=== PATIENT | female | born 1975 | race Caucasian/White ===

== ENCOUNTER 2018-12-08 21:50 | Emergency (ER) | payer OTHER ==
--- OUTSIDE RECORDS SUMMARY | 2018-12-08 21:52 | XMS REPORT ---
:1975 Author Organization eClinicalWorks Care Team Providers Name Role Phone DavisKehinde feng Provider Role Unavailable Allergies, Adverse Reactions, Alerts Substance Reaction Event Type Latex Info Not Available Drug Allergy codeine Info Not Available Drug Allergy Penicllin Info Not Available Drug Allergy Sulfa Info Not Available Drug Allergy Problems Problem Type Condition Code Onset Dates Condition Status Assessment Left foot pain M79.672 Active Assessment Plantar fasciitis of left foot M72.2 Active Assessment Peroneal tendinitis of left lower M76.72 Active extremity Medications Medication Code Code Instructions Start End Status Dosage System Date Date Losartan ND 69827104182 50 MG Orally Active 1 tablet Potassium Once a day Levothyroxine ND 01813584126 100 MCG Orally Active 1 tablet Sodium Once a day on an empty stomach in the morning MetFORMIN HCl ER ND 33664125643 500 MG Orally Active 1 tablet Once a day with evening meal Results No Known Results Summary Purpose eClinicalWorks Submission
[2018-12-08] MEDS ORDERED: MORPHINE 4 MG/ML SYR ONE (22:46)
[2018-12-08] MEDS ORDERED: NA CHLORIDE 0.9% 1,000 ML ONE (22:47)
[2018-12-08] MEDS ORDERED: ONDANSETRON 4 MG/2 ML VIAL ONE (22:49)
[2018-12-08 22:52] LABS: Absolute Lymphocytes (CBC) 2.9 K/uL (0.7-4.9); Absolute Neutrophil 7.6 K/uL (1.8-8.0); Basophils % 0.3 % (0-1.3); Eosinophils % 2.2 % (0-4.4); Lymphocytes % 24.6 % (15.3-44.8); MPV 10.1 fL (7.6-11.3); Monocytes % 8.5 % (3.3-12.3); RBC Red Blood Cell Count 4.38 M/uL (3.86-4.86)
[2018-12-08 23:03] LABS: Albumin 3.6 g/dL (3.4-5.0); Bilirubin Direct 0.2 mg/dL (0-0.2); Bilirubin Total 1.1 mg/dL (0.2-1.0); Protein, Total 7.1 g/dL (6.4-8.2)
--- NOTE | 2018-12-09 01:27 | ER ---
Nurse's Notes [facility] Name: Xenia Pittman Age: 43 yrs Sex: Female : 1975 Arrival Date: 12/08/2018 Time: 21:50 Bed 4 Private MD: Amanda Montilla C Diagnosis: Abdominal pain. Mild enteritis Presentation: 12/08 22:08 Presenting complaint: Patient states: she has been having abdominal pain all night with bb vomiting and diarrhea today the pain is in the epigastric area, does not radiate and is intermittent in intensity she also feels bloated. Transition of care: patient was not received from another setting of care. Onset of symptoms was December 07, 2018. Risk Assessment: Do you want to hurt yourself or someone else? Patient reports no desire to harm self or others. Initial Sepsis Screen: Does the patient meet any 2 criteria? No. Patient's initial sepsis screen is negative. Does the patient have a suspected source of infection? No. Patient's initial sepsis screen is negative. Care prior to arrival: None. 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 - Social history:: Smoking status: Patient/guardian denies using tobacco, Patient/guardian denies using alcohol, street drugs. - Ebola Screening: : No symptoms or risks identified at this time. Screenin:15 Abuse screen: Denies threats or abuse. Nutritional screening: No deficits noted. jd3 Tuberculosis screening: No symptoms or risk factors identified. Fall Risk Ambulatory Aid- None/Bed Rest/Nurse Assist (0 pts). Gait- Normal/Bed Rest/Wheelchair (0 pts) Mental Status- Oriented to own ability (0 pts). Total Blum Fall Scale indicates No Risk (0-24 pts). Assessment: 22:09 General: Appears in no apparent distress. uncomfortable, Behavior is calm, cooperative, jd3 appropriate for age. Pain: Complains of pain in epigastric area Pain does not radiate. Quality of pain is described as sharp. Neuro: Level of Consciousness is awake, alert, obeys commands, Oriented to person, place, time, situation, Appropriate for age. Cardiovascular: Capillary refill < 3 seconds Patient's skin is warm and dry. Respiratory: Airway is patent Respiratory effort is even, unlabored, Respiratory pattern is regular, symmetrical. GI: Abdomen is round Bowel sounds present X 4 quads. Abd is soft and non tender X 4 quads. Reports upper abdominal pain, diarrhea, epigastric pain, nausea, vomiting. : No signs and/or symptoms were reported regarding the genitourinary system. EENT: No signs and/or symptoms were reported regarding the EENT system. Derm: Skin is intact, Skin is dry, Skin is normal, Skin temperature is warm. Musculoskeletal: Circulation, motion, and sensation intact. Range of motion: intact in all extremities. 22:46 Reassessment: Patient appears in no apparent distress at this time. Patient and/or jd3 family updated on plan of care and expected duration. Pain level reassessed. Patient is alert, oriented x 3, equal unlabored respirations, skin warm/dry/pink. 23:49 Reassessment: Patient appears in no apparent distress at this time. Patient and/or jd3 family updated on plan of care and expected duration. Pain level reassessed. Patient is alert, oriented x 3, equal unlabored respirations, skin warm/dry/pink. Patient states feeling better. 12/09 01:00 Reassessment: Patient appears in no apparent distress at this time. Patient and/or jd3 family updated on plan of care and expected duration. Pain level reassessed. Patient is alert, oriented x 3, equal unlabored respirations, skin warm/dry/pink. Patient denies pain at this time. 01:41 Reassessment: Patient appears in no apparent distress at this time. Patient and/or jd3 family updated on plan of care and expected duration. Pain level reassessed. Patient is alert, oriented x 3, equal unlabored respirations, skin warm/dry/pink. Vital Signs: 12/08 22:10 BP 141 / 89; Pulse 92; Resp 18 S; Temp 97.9(O); Pulse Ox 100% on R/A; Weight 111.13 kg bb (R); Height 5 ft. 5 in. (165.10 cm) (R); Pain 5/10; 22:45 BP 124 / 79; Pulse 95; Resp 16 S; Pulse Ox 100% on R/A; jd3 23:49 BP 112 / 71; Pulse 77; Resp 16 S; Pulse Ox 100% on R/A; Pain 0/10; jd3 12/09 01:03 BP 119 / 74; Pulse 79; Resp 17 S; Pulse Ox 98% on R/A; jd3 12/08 22:10 Body Mass Index 40.77 (111.13 kg, 165.10 cm) bb ED Course: 12/08 21:50 Patient arrived in ED. am2 21:51 Amanda Montilla MD is Private Physician. am2 22:03 Cheko Mccabe MD is Attending Physician. pkl 22:09 Pop Garcia, ESTRADA is Primary Nurse. jd3 22:09 Triage completed. bb 22:10 Arm band placed on Patient placed in an exam room, on a stretcher, on pulse oximetry. bb Family accompanied patient. 22:16 Patient has correct armband on for positive identification. Placed in gown. Bed in low jd3 position. Call light in reach. Side rails up X 1. Adult w/ patient. 22:41 Initial lab(s) drawn, by me, sent to lab. Inserted saline lock: 20 gauge in right ak1 antecubital area, using aseptic technique. Blood collected. 23:04 CT notified pt finished oral contrast. ak1 12/09 00:59 CT Abd/Pelvis - W/Contrast In Process Unspecified. EDMS 01:26 Amanda Montilla MD is Referral Physician. pkl 01:40 No provider procedures requiring assistance completed. IV discontinued, intact, jd3 bleeding controlled, No redness/swelling at site. Pressure dressing applied. Administered Medications: 12/08 22:44 Drug: NS 0.9% 1000 ml Route: IV; Rate: 1000 ml; Site: right antecubital; jd3 12/09 01:39 Follow up: Response: No adverse reaction; IV Status: Completed infusion jd3 12/08 22:45 Drug: morphine 4 mg Route: IVP; Site: right antecubital; jd3 12/09 01:39 Follow up: Response: No adverse reaction jd3 12/08 22:45 Drug: Zofran 4 mg Route: IVP; Site: right antecubital; jd3 12/09 01:39 Follow up: Response: No adverse reaction jd3 01:33 Drug: Zithromax 500 mg Route: PO; jd3 01:39 Follow up: Response: Medication administered at discharge. jd3 01:33 Drug: LoMOTIL 2 tabs Route: PO; jd3 01:40 Follow up: Response: Medication administered at discharge. jd3 Outcome: 01:27 Discharge ordered by . pkl 01:40 Discharged to home ambulatory, with family. jd3 01:40 Condition: stable 01:40 Discharge instructions given to patient, family, Instructed on discharge instructions, follow up and referral plans. medication usage, Demonstrated understanding of instructions, follow-up care, medications, Prescriptions given X 3. 01:41 Patient left the ED. jd3 Signatures: Dispatcher [employer] EDMS Cheko Mccabe MD MD pkl Ballard, Brenda RN RN Laura Rodgers RN RN Virginia Greenfield Jonathon, RN RN jd3
--- NOTE | 2018-12-09 01:27 | EDPHYS ---
Physician Documentation [facility] Name: Xenia Pittman Age: 43 yrs Sex: Female : 1975 Arrival Date: 12/08/2018 Time: 21:50 Bed 4 Private MD: Amanda Montilla C ED Physician Cheko Mccabe HPI: 12/08 22:26 This 43 yrs old Female presents to ER via Ambulatory with complaints of pkl Abdominal Pain, Nausea/Vomiting/Diarrhea. 22:26 The patient presents with abdominal pain in the upper abdomen. Onset: The pkl symptoms/episode began/occurred yesterday. The symptoms do not radiate. Associated signs and symptoms: Pertinent positives: nausea, vomiting, and diarrhea. 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 - Social history:: Smoking status: Patient/guardian denies using tobacco, Patient/guardian denies using alcohol, street drugs. - Ebola Screening: : No symptoms or risks identified at this time. ROS: 22:26 Eyes: Negative for injury, pain, redness, and discharge, ENT: Negative for injury, pkl pain, and discharge, Neck: Negative for injury, pain, and swelling, Cardiovascular: Negative for chest pain, palpitations, and edema, Respiratory: Negative for shortness of breath, cough, wheezing, and pleuritic chest pain. 22:26 Abdomen/GI: Positive for abdominal pain, nausea, vomiting, and diarrhea, of the right upper quadrant and left upper quadrant. 22:26 Back: Negative for acute changes. 22:26 : Negative for urinary symptoms. 22:26 MS/extremity: Negative for acute changes. 22:26 Skin: Negative for rash. 22:26 Neuro: Negative for altered mental status. Exam: 22:26 Head/Face: Normocephalic, atraumatic. Eyes: Pupils equal round and reactive to light, pkl extra-ocular motions intact. Lids and lashes normal. Conjunctiva and sclera are non-icteric and not injected. Cornea within normal limits. Periorbital areas with no swelling, redness, or edema. ENT: Nares patent. No nasal discharge, no septal abnormalities noted. Tympanic membranes are normal and external auditory canals are clear. Oropharynx with no redness, swelling, or masses, exudates, or evidence of obstruction, uvula midline. Mucous membranes moist. Neck: Trachea midline, no thyromegaly or masses palpated, and no cervical lymphadenopathy. Supple, full range of motion without nuchal rigidity, or vertebral point tenderness. No Meningismus. Chest/axilla: Normal chest wall appearance and motion. Nontender with no deformity. No lesions are appreciated. Cardiovascular: Regular rate and rhythm with a normal S1 and S2. No gallops, murmurs, or rubs. Normal PMI, no JVD. No pulse deficits. Respiratory: Lungs have equal breath sounds bilaterally, clear to auscultation and percussion. No rales, rhonchi or wheezes noted. No increased work of breathing, no retractions or nasal flaring. 22:26 Abdomen/GI: Bowel sounds: normal, Palpation: soft, mild abdominal tenderness, in the right upper quadrant and left upper quadrant. 22:26 Back: Exam negative for acute changes. 22:26 : Exam negative for acute changes. 22:26 Musculoskeletal/extremity: Exam is negative for acute changes. 22:26 Skin: Exam negative for rash. 22:26 Neuro: Orientation: is normal, Mentation: is normal, Cranial nerves: grossly normal, Motor: is normal. Vital Signs: 22:10 BP 141 / 89; Pulse 92; Resp 18 S; Temp 97.9(O); Pulse Ox 100% on R/A; Weight 111.13 kg bb (R); Height 5 ft. 5 in. (165.10 cm) (R); Pain 5/10; 22:45 BP 124 / 79; Pulse 95; Resp 16 S; Pulse Ox 100% on R/A; jd3 23:49 BP 112 / 71; Pulse 77; Resp 16 S; Pulse Ox 100% on R/A; Pain 0/10; jd3 12/09 01:03 BP 119 / 74; Pulse 79; Resp 17 S; Pulse Ox 98% on R/A; jd3 12/08 22:10 Body Mass Index 40.77 (111.13 kg, 165.10 cm) bb MDM: 12/08 22:03 Patient medically screened. pkl 12/09 01:25 Data reviewed: vital signs, nurses notes, lab test result(s), radiologic studies, CT pkl scan. 12/08 22:22 Order name: Basic Metabolic Panel; Complete Time: 23:19 pkl 12/08 22:22 Order name: CBC with Diff; Complete Time: 23:19 pkl 12/08 22:22 Order name: Creatinine for Radiology; Complete Time: 00:40 pkl 12/08 22:22 Order name: Hepatic Function; Complete Time: 23:19 pkl 12/08 22:22 Order name: Lipase; Complete Time: 23:19 pkl 12/08 22:23 Order name: CT Abd/Pelvis - W/Contrast pkl 12/08 22:22 Order name: IV Saline Lock; Complete Time: 22:45 pkl 12/08 22:22 Order name: Labs collected and sent; Complete Time: 22:45 pkl Administered Medications: 12/08 22:44 Drug: NS 0.9% 1000 ml Route: IV; Rate: 1000 ml; Site: right antecubital; jd3 12/09 01:39 Follow up: Response: No adverse reaction; IV Status: Completed infusion jd3 12/08 22:45 Drug: morphine 4 mg Route: IVP; Site: right antecubital; jd3 12/09 01:39 Follow up: Response: No adverse reaction jd3 12/08 22:45 Drug: Zofran 4 mg Route: IVP; Site: right antecubital; jd3 12/09 01:39 Follow up: Response: No adverse reaction jd3 01:33 Drug: Zithromax 500 mg Route: PO; jd3 01:39 Follow up: Response: Medication administered at discharge. jd3 01:33 Drug: LoMOTIL 2 tabs Route: PO; jd3 01:40 Follow up: Response: Medication administered at discharge. jd3 Disposition: 12/09/18 01:27 Discharged to Home. Impression: Abdominal pain. Mild enteritis. - Condition is Stable. - Prescriptions for Zofran 4 mg Oral Tablet - take 1 tablet by ORAL route every 12 hours As needed; 6 tablet. Zithromax Z- Jules 250 mg Oral Tablet - take 1 tablet by ORAL route as directed for 5 days Day 1 - take two (2) tablets one time. Day 2, 3, 4 , 5 take one (1) tablet once daily.; 6 tablet. Lomotil 2.5- 0.025 mg Oral Tablet - take 2 tablet by ORAL route every 8-12 hours As needed; 10 tablet. - Medication Reconciliation Form, Thank You Letter, Antibiotic Education, Prescription Opioid Use form. - Follow up: Amanda Montilla MD; When: 2 - 3 days; Reason: Re-evaluation by your physician. - Problem is new. - Symptoms have improved. Signatures: Dispatcher [employer] EDCheko Drake MD MD pkl Chika Thrasher RN RN bb Pop Garcia RN RN jd3 Corrections: (The following items were deleted from the chart) 01:41 01:27 12/09/2018 01:27 Discharged to Home. Impression: Abdominal pain. Mild enteritis. jd3 Condition is Stable. Forms are Medication Reconciliation Form, Thank You Letter, Antibiotic Education, Prescription Opioid Use. Follow up: Amanda Montilla; When: 2 - 3 days; Reason: Re-evaluation by your physician. Problem is new. Symptoms have improved. pkl
[2018-12-09] MEDS ORDERED: AZITHROMYCIN 250 MG TAB ONE (01:41)
[2018-12-09] MEDS ORDERED: DIPHENOX/ATROP SULF 1 TAB PO ONE (01:41)
[2018-12-09 01:59] VITALS: TEMP 97.9
[2018-12-09 02:03] VITALS: BP 119/74; O2SAT 98
--- NOTE | 2018-12-09 12:31 | RAD REPORT ---
EXAM DESCRIPTION: CT - Abdomen Pelvis W Contrast - 12/09/2018 12:59 am CLINICAL HISTORY: The patient is 43 years old and is Female; ABD PAIN TECHNIQUE: Axial computed tomography images of the abdomen and pelvis with intravenous contrast. S agittal and coronal reformatted images were created and reviewed. This CT exam was performed using one or more of the following dose reduction techniques: automated exposure control, adjustment of t he mA and/or kV according to patient size, and/or use of iterative reconstruction technique. COMPARISON: No relevant prior studies available. FINDINGS: LUNG BASES: Minimal dependent densities in the lung bases are present. ABDOMEN: LIVER: The liver is mildly fatty and enlarged. GALLBLADDER AND BILE DUCTS: Surgical clips are present in the right upper quadrant, consistent w ith previous cholecystectomy. PANCREAS: No ductal dilation. No mass. SPLEEN: Unremarkable. ADRENALS: Unremarkable. No mass. KIDNEYS AND URETERS: Unremarkable. No solid mass. No hydronephrosis. STOMACH AND BOWEL: The stomach is distended with oral contrast. Oral contrast is present through out the majority of the small bowel. A few distal small bowel loops demonstrate mild mucosal thickeni ng with associated air-fluid levels. Stool is noted within the colon. There is no bowel obstruction. PELVIS: APPENDIX: The appendix is normal in caliber without surrounding inflammation. BLADDER: Unremarkable. No mass. REPRODUCTIVE: An IUD is in place. A small 2.2 cm left ovarian cyst is present. No follow-up imag ing is recommended. The uterus and right ovary are unremarkable. ABDOMEN and PELVIS: INTRAPERITONEAL SPACE: Small amount of free fluid is present within the pelvis which is likely p hysiologic. No free air. BONES/JOINTS: No acute fracture. SOFT TISSUES: The soft tissues are normal. VASCULATURE: Unremarkable. No abdominal aortic aneurysm. LYMPH NODES: Unremarkable. No enlarged lymph nodes. IMPRESSION: Findings suggestive of a mild nonspecific enteritis involving multiple mid to distal sma ll bowel loops. Electronically signed by: Xni Main MD 12/09/2018 1:07 AM CDT Due to temporary technical issues with the PACS/Fluency reporting system, reports are being signed by the in house radiologist as a courtesy to ensure prompt reporting. The interpreting radiologist is f ully responsible for the content of the report.
== END 2018-12-09 01:41 | disposition home or self-care (01) ==
LOC: ER 21:50
DX: K52.9 Noninfective gastroenteritis and colitis, unspecified (principal); J45.909 Unspecified asthma, uncomplicated; E11.9 Type 2 diabetes mellitus without complications; I10 Essential (primary) hypertension; E03.9 Hypothyroidism, unspecified; Z88.1 Allergy status to other antibiotic agents; Z88.5 Allergy status to narcotic agent; Z88.0 Allergy status to penicillin; Z88.2 Allergy status to sulfonamides
CPT/HCPCS: 36415; 74177; 80048; 80076; 83690; 85025; 96361; 96374; 96375; 99284; J2405; J7030; Q9967

== ENCOUNTER 2019-04-05 07:56 | Emergency (ER) | payer OTHER ==
--- OUTSIDE RECORDS SUMMARY | 2019-04-05 07:58 | XMS REPORT ---
[...] Status Dosage System Date Date Losartan ND 50454173403 50 MG Orally Active 1 tablet Potassium Once a day Levothyroxine ND 64825460644 100 MCG Orally Active 1 tablet Sodium Once a day on an empty stomach in the morning MetFORMIN HCl ER ND 42874625568 500 MG Orally Active 1 tablet Once a day with evening meal Results No Known Results Summary Purpose eClinicalWorks Submission
[2019-04-05] MEDS ORDERED: NA CHLORIDE 0.9% 1,000 ML ONE (08:42)
[2019-04-05] MEDS ORDERED: ONDANSETRON 4 MG/2 ML VIAL ONE (08:42)
[2019-04-05] MEDS ORDERED: MORPHINE 2 MG/ML SYR ONE (08:44)
[2019-04-05 09:56] LABS: Albumin 3.9 g/dL (3.4-5.0); Bilirubin Direct 0.1 mg/dL (0-0.2); Bilirubin Total 0.5 mg/dL (0.2-1.0); Potassium 3.9 mmol/L (3.5-5.1); Protein, Total 7.8 g/dL (6.4-8.2)
[2019-04-05 10:00] LABS: Absolute Lymphocytes (CBC) 2.6 K/uL (0.7-4.9); Basophils % 0.2 % (0-1.3); Hematocrit 41.4 % (36.0-45.0); Lymphocytes % 20.3 % (15.3-44.8); MPV 10.7 fL (7.6-11.3); RBC Red Blood Cell Count 4.29 M/uL (3.86-4.86)
[2019-04-05 10:13] LABS: Urine Blood NEGATIVE (NEG); Urine Glucose TRACE (NEG); Urine Protein NEGATIVE (NEG); Urine Specific Gravity 1.025 (1.005-1.030); Urine pH 5.5 (5.0-7.0)
[2019-04-05 10:21] LABS: Urine Bacteria <20 /HPF (<20); Urine Culture Reflex Order NOT NEEDED; Urine Mucus 1+ /HPF (NONE SEEN); Urine RBC <5 /HPF (NONE SEEN)
--- NOTE | 2019-04-05 11:03 | RAD REPORT ---
EXAM DESCRIPTION: CT - Abdomen Pelvis W Contrast - 04/05/2019 10:34 am CLINICAL HISTORY: Abdominal pain with vomiting COMPARISON: December 2018 TECHNIQUE: Computed axial tomography of the abdomen pelvis was obtained. 100 cc Isovue-300 was admin istered intravenously. Oral contrast was not requested which limits evaluation of bowel. All CT scans are performed using dose optimization technique as appropriate and may include automated exposure control or mA/KV adjustment according to patient size. FINDINGS: The liver, spleen, pancreas, adrenal and right kidney appear unremarkable. 1 millimeter no nobstructing left renal calculus. There is no evidence of diverticulitis. Normal appendix An IUD is present within the uterus. Fluid is present within nondilated bowel IMPRESSION: Fluid is present within nondilated bowel which may indicate an enteritis .
--- NOTE | 2019-04-05 11:26 | ER ---
Nurse's Notes [facility] Name: Xenia Pittman Age: 43 yrs Sex: Female : 1975 Arrival Date: 04/05/2019 Time: 07:58 Bed 15 Private MD: Diagnosis: Unspecified abdominal pain Presentation: 04/05 08:00 Presenting complaint: Patient states: upper abd pain that began "a few days ago, aa5 started getting worse last night but today is even worse". Pt also reports nausea/vomiting, denies diarrhea. 08:00 Transition of care: patient was not received from another setting of care. Onset of aa5 symptoms was March 2019. Risk Assessment: Do you want to hurt yourself or someone else? Patient reports no desire to harm self or others. Initial Sepsis Screen: Does the patient meet any 2 criteria? No. Patient's initial sepsis screen is negative. Does the patient have a suspected source of infection? No. Patient's initial sepsis screen is negative. Care prior to arrival: None. 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 - Social history:: Smoking status: Patient/guardian denies using tobacco. - Ebola Screening: : No symptoms or risks identified at this time. Screenin:10 Abuse screen: Denies threats or abuse. Nutritional screening: No deficits noted. rb1 Tuberculosis screening: No symptoms or risk factors identified. Fall Risk None identified. Assessment: 08:10 General: Appears uncomfortable, Behavior is crying, Denies fever. Pain: Complains of rb1 pain in epigastric area, right upper quadrant and left upper quadrant Pain does not radiate. Pain currently is 10 out of 10 on a pain scale. Pain began this morning. Neuro: Level of Consciousness is awake, alert, obeys commands, Oriented to person, place, time, situation. Cardiovascular: Capillary refill < 3 seconds is brisk in bilateral fingers. Respiratory: Airway is patent Respiratory effort is even, unlabored, Respiratory pattern is regular, symmetrical. GI: Bowel sounds present X 4 quads. Abd is soft Reports nausea, Last bowel movement was this morning, stool was normal. Pt. denies bloody stools. : No signs and/or symptoms were reported regarding the genitourinary system. Derm: Skin is pink, warm \\T\\ dry. 09:10 Reassessment: Patient appears in no apparent distress at this time. Patient and/or rb1 family updated on plan of care and expected duration. Pain level reassessed. Patient is alert, oriented x 3, equal unlabored respirations, skin warm/dry/pink. Pain 10. Pt. is crying. Family at bedside. 10:10 Reassessment: Patient appears in no apparent distress at this time. Patient and/or rb1 family updated on plan of care and expected duration. Pain level reassessed. Patient is alert, oriented x 3, equal unlabored respirations, skin warm/dry/pink. Patient denies pain at this time. Patient states feeling better. Patient states symptoms have improved. 10:28 Reassessment: Pt. went to CT. rb1 11:09 Reassessment: Patient appears in no apparent distress at this time. Patient and/or rb1 family updated on plan of care and expected duration. Pain level reassessed. Patient is alert, oriented x 3, equal unlabored respirations, skin warm/dry/pink. Pt. reports that the pain is starting to come back. Provider notified. Vital Signs: 08:01 BP 161 / 82; Pulse 85; Resp 18 S; Temp 98.3(O); Pulse Ox 98% on R/A; Weight 107.5 kg aa5 (R); Height 5 ft. 5 in. (165.10 cm) (R); Pain 9/10; 09:00 BP 158 / 89; Pulse 92; Resp 20; Temp 98.0(TE); Pulse Ox 100% on R/A; Pain 10; rb1 10:00 BP 113 / 59; Pulse 70; Resp 16; Temp 98.1(O); Pulse Ox 99% on R/A; Pain 0/10; rb1 11:00 BP 110 / 58; Pulse 69; Resp 16; Temp 98.6(O); Pulse Ox 98% on R/A; Pain 2/10; rb1 08:01 Body Mass Index 39.44 (107.50 kg, 165.10 cm) aa5 09:00 Pt. is crying rb1 ED Course: 07:58 Patient arrived in ED. as 08:04 Serge Mccall MD is Attending Physician. andrez 08:05 Arm band placed on Patient placed in an exam room, on a stretcher. aa5 08:07 Triage completed. aa5 08:10 Patient has correct armband on for positive identification. Bed in low position. Call rb1 light in reach. Side rails up X 1. Pulse ox on. NIBP on. Warm blanket given. 08:15 Serge Ruiz PA is PHCP. cp 08:22 Melva Lam, RN is Primary Nurse. rb1 08:27 Radiology exam delayed due to lab results not completed at this time. (BUN/Creatinine). mw3 08:38 Radiology exam delayed due to test not completed at this time. mw3 08:45 Inserted saline lock: 22 gauge in right antecubital area, using aseptic technique. rb1 ,using aseptic technique. IV inserted by Milvia Michaels and her instructor. Blood collected. 08:58 Radiology exam delayed due to lab results not completed at this time. (BUN/Creatinine) mw3 test not completed at this time. 09:44 Radiology exam delayed due to lab results not completed at this time. (BUN/Creatinine). mw3 10:34 CT completed. Patient tolerated procedure well. Patient moved back from CT. mw3 10:36 CT Abd/Pelvis - IV Contrast Only In Process Unspecified. EDMS 11:24 Ramy Martinez MD is Referral Physician. cp 11:46 No provider procedures requiring assistance completed. IV discontinued, intact, rb1 bleeding controlled, No redness/swelling at site. Pressure dressing applied. Administered Medications: 09:10 Drug: Zofran 4 mg Route: IVP; Site: right antecubital; rb1 09:25 Follow up: Response: No adverse reaction; Nausea is decreased rb1 09:10 Drug: morphine 4 mg Route: IVP; Site: right antecubital; rb1 09:25 Follow up: Response: No adverse reaction; Pain is decreased; pain 04/19 rb1 09:10 Drug: NS 0.9% 1000 ml Route: IV; Rate: 1 bolus; Site: right antecubital; rb1 10:28 Follow up: IV Status: Completed infusion rb1 11:27 Drug: Bentyl 20 mg Route: PO; rb1 11:46 Follow up: Response: No adverse reaction rb1 Intake: Outcome: 11:25 Discharge ordered by . cp 11:46 Patient left the ED. rb1 11:46 Discharged to home ambulatory, with family. rb1 11:46 Condition: stable 11:46 Discharge instructions given to patient, Instructed on discharge instructions, follow up and referral plans. medication usage, Demonstrated understanding of instructions, follow-up care, medications, Prescriptions given X 3. Signatures: Dispatcher [employer] EDAZ Serge Mccall MD MD cha Martinez, Amelia as Calderon, Audri, ESTRADA RN aa5 Serge Ruiz PA PA Melva Sanz RN RN rb1 Fany Buck mw3
--- NOTE | 2019-04-05 11:26 | EDPHYS ---
Physician Documentation [facility] Name: Xenia Pittman Age: 43 yrs Sex: Female : 1975 Arrival Date: 04/05/2019 Time: 07:58 Bed 15 Private MD: NATHEN Physician Serge Mccall HPI: 04/05 08:19 This 43 yrs old Female presents to ER via Ambulatory with complaints of cp Abdominal Pain. 08:20 The patient presents with abdominal pain in the upper abdomen, mid abdomen. Onset: The cp symptoms/episode began/occurred several days ago, improved, returned last night and today worse. 08:20 The symptoms do not radiate. Associated signs and symptoms: Pertinent positives: cp nausea, Pertinent negatives: blood in stools, chest pain, constipation, diarrhea, dysuria, fever, palpitations, vomiting. The symptoms are described as constant. Modifying factors: the symptoms are aggravated by movement, pressure. The patient has experienced similar episodes in the past, several times. 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 - Social history:: Smoking status: Patient/guardian denies using tobacco. - Ebola Screening: : No symptoms or risks identified at this time. ROS: 08:25 Constitutional: Negative for body aches, chills, fever, poor PO intake. cp 08:25 Eyes: Negative for injury, pain, redness, and discharge. cp 08:25 ENT: Negative for drainage from ear(s), ear pain, sore throat, difficulty swallowing, difficulty handling secretions. 08:25 Cardiovascular: Negative for chest pain, edema, palpitations. 08:25 Respiratory: Negative for cough, shortness of breath, wheezing. 08:25 Abdomen/GI: Positive for abdominal pain, nausea, Negative for vomiting, diarrhea, constipation, anorexia, black/tarry stool, rectal bleeding. 08:25 Back: Negative for radiated pain. 08:25 : Negative for urinary symptoms. 08:25 Skin: Negative for cellulitis, rash. 08:25 All other systems are negative. Exam: 08:35 Constitutional: The patient appears in no acute distress, alert, awake, cp non-diaphoretic, non-toxic, well developed, well nourished, uncomfortable. 08:35 Head/Face: Normocephalic, atraumatic. cp 08:35 Eyes: Periorbital structures: appear normal, Conjunctiva: normal, no exudate, no injection, Sclera: no appreciated abnormality, Lids and lashes: appear normal, bilaterally. 08:35 ENT: External ear(s): are unremarkable, Nose: is normal, Mouth: Lips: moist, Oral mucosa: pink and intact, moist, Posterior pharynx: is normal, airway is patent, no erythema, no exudate. 08:35 Chest/axilla: Inspection: normal, Palpation: is normal, no crepitus, no tenderness. 08:35 Cardiovascular: Rate: normal, Rhythm: regular. 08:35 Respiratory: the patient does not display signs of respiratory distress, Respirations: normal, no use of accessory muscles, no retractions, no splinting, no tachypnea, labored breathing, is not present, Breath sounds: are clear throughout, no decreased breath sounds, no stridor, no wheezing. 08:35 Abdomen/GI: Inspection: abdomen appears normal, Bowel sounds: active, all quadrants, Palpation: soft, in all quadrants, moderate abdominal tenderness, in the umbilical area, right upper quadrant and left upper quadrant, rebound tenderness, is not appreciated, voluntary guarding, is elicited in the umbilical area, right upper quadrant and left upper quadrant, involuntary guarding, is not appreciated. 08:35 Back: pain, is absent, ROM is normal. 08:35 Skin: no rash present. Vital Signs: 08:01 BP 161 / 82; Pulse 85; Resp 18 S; Temp 98.3(O); Pulse Ox 98% on R/A; Weight 107.5 kg aa5 (R); Height 5 ft. 5 in. (165.10 cm) (R); Pain 9/10; 09:00 BP 158 / 89; Pulse 92; Resp 20; Temp 98.0(TE); Pulse Ox 100% on R/A; Pain 10/10; rb1 10:00 BP 113 / 59; Pulse 70; Resp 16; Temp 98.1(O); Pulse Ox 99% on R/A; Pain 0/10; rb1 11:00 BP 110 / 58; Pulse 69; Resp 16; Temp 98.6(O); Pulse Ox 98% on R/A; Pain 2/10; rb1 08:01 Body Mass Index 39.44 (107.50 kg, 165.10 cm) aa5 09:00 Pt. is crying rb1 MDM: 08:08 Patient medically screened. andrez 08:35 Differential diagnosis: appendicitis, bowel obstruction, gastritis, non-specific abd cp pain, pancreatitis, Peptic Ulcer Disease, Perf. Duodenal Ulcer, Perf. Gastric Ulcer, Pyelonephritis, Ureterolithiasis, urinary tract infection. 11:25 Data reviewed: vital signs, nurses notes, lab test result(s), radiologic studies, CT cp scan. 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 Response to treatment: the patient's symptoms have markedly improved after treatment, and as a result, I will discharge patient. Special discussion: Based on the patient's Hx, exam, and Dx evaluation, there is no indication for emergent surgery or inpatient Tx. It is understood by the patient/guardian that if the Sx's persist or worsen they need to return immediately for re-evaluation. ED course: VSS. Pain improved with meds. Will discharge to home for continued monitoring. 04/05 08:22 Order name: Basic Metabolic Panel; Complete Time: 09:58 cp 04/05 09:58 Interpretation: Normal except: CL 109; GLUC 175; GFR 74. cp 04/05 08:22 Order name: CBC with Diff; Complete Time: 10:25 cp 04/05 10:25 Interpretation: Normal except: WBC 12.7; NEUT A 9.1. cp 04/05 08:22 Order name: Creatinine for Radiology; Complete Time: 09:58 cp 04/05 08:22 Order name: Hepatic Function; Complete Time: 09:58 cp 04/05 09:58 Interpretation: Normal except: GLOB 3.9; A/G 1.0. cp 04/05 08:22 Order name: Lipase; Complete Time: 09:58 cp 04/05 08:22 Order name: Urine Microscopic Only; Complete Time: 10:25 cp 04/05 08:22 Order name: IV Saline Lock; Complete Time: 09:24 cp 04/05 08:22 Order name: CT Abd/Pelvis - IV Contrast Only; Complete Time: 11:10 cp 04/05 10:04 Order name: Urine Dipstick--Ancillary (enter results); Complete Time: 10:25 eb 04/05 10:04 Order name: Urine --Ancillary (enter results); Complete Time: 10:25 eb 04/05 08:22 Order name: Labs collected and sent; Complete Time: 09:24 cp 04/05 08:22 Order name: Urine Dipstick-Ancillary (obtain specimen); Complete Time: 10:00 cp 04/05 08:22 Order name: Urine Test (obtain specimen); Complete Time: 10:00 cp 04/05 11:18 Order name: PO challenge; Complete Time: 11:28 cp Administered Medications: 09:10 Drug: Zofran 4 mg Route: IVP; Site: right antecubital; rb1 09:25 Follow up: Response: No adverse reaction; Nausea is decreased rb1 09:10 Drug: morphine 4 mg Route: IVP; Site: right antecubital; rb1 09:25 Follow up: Response: No adverse reaction; Pain is decreased; pain 04/19 rb1 09:10 Drug: NS 0.9% 1000 ml Route: IV; Rate: 1 bolus; Site: right antecubital; rb1 10:28 Follow up: IV Status: Completed infusion rb1 11:27 Drug: Bentyl 20 mg Route: PO; rb1 11:46 Follow up: Response: No adverse reaction rb1 Disposition: 04/06 11:11 Co-signature as Attending Physician, Serge CHACON I agree with the assessment and andrez plan of care. Disposition: 04/05/19 11:25 Discharged to Home. Impression: Unspecified abdominal pain. - Condition is Stable. - Discharge Instructions: Abdominal Pain, Adult. - Prescriptions for Bentyl 20 mg Oral Tablet - take 2 tablets by ORAL route every 6 hours As needed; 30 tablet. Zofran 4 mg Oral Tablet - take 1 tablet by ORAL route every 12 hours As needed; 20 tablet. Metronidazole 500 mg Oral Tablet - take 1 tablet by ORAL route every 8 hours; 30 tablet. - Medication Reconciliation Form, Thank You Letter, Antibiotic Education, Prescription Opioid Use form. - Follow up: Ramy Martinez MD; When: 2 - 3 days; Reason: Recheck today's complaints. - Problem is new. - Symptoms have improved. Signatures: Dispatcher [employer] EDMS Serge Mccall MD MD cha Calderon, Audri, RN RN aa5 Serge Ruiz PA PA cp Barber, Rebecca, RN RN rb1 Corrections: (The following items were deleted from the chart) 04/05 10:25 10:25 Normal except: WBC 12.7. cp cp 11:46 11:25 04/05/2019 11:25 Discharged to Home. Impression: Unspecified abdominal pain. rb1 Condition is Stable. Forms are Medication Reconciliation Form, Thank You Letter, Antibiotic Education, Prescription Opioid Use. Follow up: Ramy Martinez; When: 2 - 3 days; Reason: Recheck today's complaints. Problem is new. Symptoms have improved. cp
[2019-04-05] MEDS ORDERED: DICYCLOMINE HCL 10 MG CAP ONE (11:41)
[2019-04-05 12:05] VITALS: BP 110/58; TEMP 98.6; O2SAT 98
== END 2019-04-05 11:46 | disposition home or self-care (01) ==
LOC: ER 07:56
DX: R10.9 Unspecified abdominal pain (principal); I10 Essential (primary) hypertension; E11.9 Type 2 diabetes mellitus without complications; E03.9 Hypothyroidism, unspecified; Z88.0 Allergy status to penicillin; Z88.1 Allergy status to other antibiotic agents; Z88.2 Allergy status to sulfonamides; Z88.5 Allergy status to narcotic agent
CPT/HCPCS: 36415; 74177; 80048; 80076; 81003; 81015; 81025; 83690; 85025; 96361; 96374; 96375; 99284; J2270; J2405; J7030; Q9967

== ENCOUNTER 2019-09-20 19:42 | Emergency (ER) | payer OTHER ==
--- OUTSIDE RECORDS SUMMARY | 2019-09-20 19:44 | XMS REPORT ---
[...] Status Dosage System Date Date Losartan ND 19359948505 50 MG Orally Active 1 tablet Potassium Once a day Levothyroxine ND 55490274809 100 MCG Orally Active 1 tablet Sodium Once a day on an empty stomach in the morning MetFORMIN HCl ER ND 57709942990 500 MG Orally Active 1 tablet Once a day with evening meal Results No Known Results Summary Purpose eClinicalWorks Submission
[2019-09-20] MEDS ORDERED: MAGNE/ALUM HYDROXD 30 ML UCUP ONE (20:47)
[2019-09-20] MEDS ORDERED: ONDANSETRON 4 MG/2 ML VIAL ONE (20:48)
[2019-09-20] MEDS ORDERED: LIDOCAINE VISCOUS 2% SOLN 15 ML UDC ONE (20:48)
[2019-09-20] MEDS ORDERED: NA CHLORIDE 0.9% 1,000 ML ONE (20:48)
[2019-09-20 21:09] LABS: Absolute Lymphocytes (CBC) 2.3 K/uL (0.7-4.9); Basophils % 0.4 % (0-1.3); Hematocrit 44.1 % (36.0-45.0); Lymphocytes % 19.1 % (15.3-44.8); RBC Red Blood Cell Count 4.59 M/uL (3.86-4.86)
[2019-09-20 21:30] LABS: Albumin 3.8 g/dL (3.4-5.0); Bilirubin Direct 0.3 mg/dL (0-0.2); Bilirubin Total 1.1 mg/dL (0.2-1.0); Potassium 3.7 mmol/L (3.5-5.1); Protein, Total 7.1 g/dL (6.4-8.2)
[2019-09-20] MEDS ORDERED: MORPHINE 4 MG/ML SYR ONE (21:40)
--- NOTE | 2019-09-20 23:08 | ER ---
Nurse's Notes [facility] Name: Xenia Pittman Age: 44 yrs Sex: Female : 1975 Arrival Date: 09/20/2019 Time: 19:45 Bed 30 Private MD: Diagnosis: Unspecified abdominal pain;Vomiting;Diarrhea, unspecified Presentation: 09/20 19:55 Presenting complaint: Patient states: "Im having another H.Pylori flare up. I finished aj1 by antibiotics on the but now the pain is back. I called my doctor and they called me in an antibiotic and some nausea medicine, but the pain is worse now. I'm having diarrhea and vomiting." Patient reports epigastric pain. Transition of care: patient was not received from another setting of care. Onset of symptoms was September 20, 2019. Risk Assessment: Do you want to hurt yourself or someone else? Patient reports no desire to harm self or others. Initial Sepsis Screen: Does the patient meet any 2 criteria? HR > 90 bpm. No. Patient's initial sepsis screen is negative. Does the patient have a suspected source of infection? Yes: Acute abdominal pain. Care prior to arrival: None. 19:55 Method Of Arrival: Ambulatory aj1 19:55 Acuity: GEOVANNY 3 aj1 Triage Assessment: 19:59 General: Appears in no apparent distress. comfortable, Behavior is calm, cooperative, aj1 appropriate for age. Pain: Complains of pain in epigastric area Pain currently is 8 out of 10 on a pain scale. Neuro: Level of Consciousness is awake, alert, obeys commands. Cardiovascular: Patient's skin is warm and dry. Respiratory: Airway is patent Respiratory effort is even, unlabored, Respiratory pattern is regular, symmetrical. GI: Reports upper abdominal pain, diarrhea, nausea, vomiting. 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 - Social history:: Smoking status: Patient/guardian denies using tobacco. - Ebola Screening: : Patient denies travel to an Ebola-affected area in the 21 days before illness onset. Screenin:22 Abuse screen: Denies threats or abuse. Nutritional screening: No deficits noted. ra1 Tuberculosis screening: No symptoms or risk factors identified. Fall Risk None identified. Assessment: 21:22 Reassessment:. General: Appears in no apparent distress. comfortable, well groomed, ra1 well developed, well nourished, Behavior is calm, cooperative, appropriate for age, Smells of Reports pt report pain to right eye, verbalized onset of pain 2 days ago after sharpening an axe Denies. Pain: Complains of pain in right eye Pain radiates to scalp verbalized radiates to right side of head Pain Quality of pain is described as burning, Pain began 2-3 days ago. Is continuous, Alleviated by Aggravated by increased discomfort reported with bright lights Noted to be without observed behaviors Also complains of no other associated symptoms. Current management - is no interventions. Neuro: Reports blurred vision right eye Denies Seizure activity. Cardiovascular: Reports None. Respiratory: Breath sounds are clear bilaterally. GI: Bowel sounds present X 4 quads. Abd is soft and non tender X 4 quads. : No signs and/or symptoms were reported regarding the genitourinary system. EENT: Reports blurred vision right eye. Derm: No signs and/or symptoms reported regarding the dermatologic system. Musculoskeletal: No signs and/or symptoms reported regarding the musculoskeletal system. 21:55 Reassessment: Patient appears in no apparent distress at this time. Patient and/or ra1 family updated on plan of care and expected duration. Pain level reassessed. Patient is alert, oriented x 3, equal unlabored respirations, skin warm/dry/pink. Patient states feeling better. Patient states symptoms have improved. General: Appears in no apparent distress. 22:39 Reassessment: Patient appears in no apparent distress at this time. Patient and/or ra1 family updated on plan of care and expected duration. Pain level reassessed. Patient is alert, oriented x 3, equal unlabored respirations, skin warm/dry/pink. Patient states feeling better. Patient states symptoms have improved. 23:24 Reassessment: Patient appears in no apparent distress at this time. Patient and/or ra1 family updated on plan of care and expected duration. Pain level reassessed. Patient is alert, oriented x 3, equal unlabored respirations, skin warm/dry/pink. Patient states feeling better. Patient states symptoms have improved. verbalized no pain at this time. General: Appears in no apparent distress. comfortable, Behavior is calm, cooperative, appropriate for age, Reports Denies. Respiratory: No deficits noted. Vital Signs: 19:59 BP 129 / 87; Pulse 92; Resp 18; Temp 98.2; Pulse Ox 99% on R/A; Weight 99.34 kg (R); aj1 Height 5 ft. 5 in. (165.10 cm) (R); Pain 8/10; 22:20 BP 134 / 77; Pulse 84; Resp 16; Temp 98.5; Pulse Ox 96% on R/A; Pain 0/10; ra1 19:59 Body Mass Index 36.44 (99.34 kg, 165.10 cm) aj1 ED Course: 19:45 Patient arrived in ED. jg7 19:56 Triage completed. aj1 19:59 Arm band placed on Patient placed in waiting room. aj1 20:08 Josep Ag NP is PHCP. pm1 20:08 Serge Mccall MD is Attending Physician. pm1 20:19 Quirino Williamson, ESTRADA is Primary Nurse. ra1 21:13 Basic Metabolic Panel Sent. ra1 21:14 Creatinine for Radiology Sent. ra1 21:14 Hepatic Function Sent. ra1 21:14 Lipase Sent. ra1 21:22 No apparent distress. ra1 21:22 Bed in low position. Call light in reach. ra1 21:22 No provider procedures requiring assistance completed. ra1 21:32 Inserted saline lock: 20 gauge in right antecubital area, using aseptic technique. ra1 Accessed 23:08 Mariana Muir MD is Referral Physician. pm1 23:24 IV discontinued, intact, bleeding controlled, No redness/swelling at site. Pressure ra1 dressing applied. Administered Medications: 20:55 Drug: GI Cocktail without - (Maalox Suspension 30 ml, Lidocaine Liquid 2 % 15 ra1 ml) Route: PO; 23:49 Follow up: Response: No adverse reaction; Pain is unchanged, physician notified ra1 20:55 Drug: Zofran 4 mg Route: IVP; Site: right antecubital; ra1 23:50 Follow up: Response: No adverse reaction; Nausea is decreased ra1 21:00 Drug: NS 0.9% 1000 ml Route: IV; Rate: 1000 ml; Site: right antecubital; ra1 23:50 Follow up: Response: No adverse reaction; Rate change ml/hr; IV Status: Completed ra1 infusion; IV Intake: 1000ml 21:38 Drug: morphine 4 mg Route: IVP; Site: right antecubital; ra1 23:51 Follow up: Response: No adverse reaction; Pain is decreased ra1 Intake: 23:50 IV: 1000ml; Total: 1000ml. ra1 Outcome: 23:08 Discharge ordered by MD. pm1 23:24 Discharged to home ambulatory, with family. ra1 23:24 Condition: improved 23:24 Discharge instructions given to patient, family, Instructed on discharge instructions, follow up and referral plans. medication usage, Demonstrated understanding of instructions, follow-up care, medications, Prescriptions given X 2, Following a medical screening exam, the patient was provided information regarding alternative care sites and resources available per registration personnel. 23:52 Patient left the ED. ra1 Signatures: Alice Stephenson RN RN aj1 Josep Ag NP MANAGER INSPECTION pm1 Quirino Williamson RN RN ra1 Jana Anderson [id number] Corrections: (The following items were deleted from the chart) 23:43 21:55 Respiratory: ra1 ra1
--- NOTE | 2019-09-20 23:09 | EDPHYS ---
Physician Documentation [facility] Name: Xenia Pittman Age: 44 yrs Sex: Female : 1975 Arrival Date: 09/20/2019 Time: 19:45 Bed 30 Private MD: NATHEN Physician Serge Mccall HPI: 09/20 20:32 This 44 yrs old Female presents to ER via Ambulatory with complaints of pm1 Abdominal Pain. 20:32 The patient presents with abdominal pain in the epigastric area. pm1 20:32 Onset: The symptoms/episode began/occurred today. The symptoms do not radiate. pm1 Associated signs and symptoms: Pertinent positives: nausea, vomiting, and diarrhea, Pertinent negatives: chest pain, constipation, shortness of breath. The symptoms are described as burning, constant. Modifying factors: The symptoms are alleviated by nothing, the symptoms are aggravated by food. Severity of pain: in the emergency department the pain is actually worse. The patient has experienced similar episodes in the past, several times. The patient has been recently seen by a physician: completed H Pylori treatment recently, 09/04. Symptoms feel the same as a flare up of her H. pylori in the past. Called Dr. Muir today and was called Kaylene. Patient has appointment with him on Sunday. 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 - Social history:: Smoking status: Patient/guardian denies using tobacco. - Ebola Screening: : Patient denies travel to an Ebola-affected area in the 21 days before illness onset. ROS: 20:32 Constitutional: Negative for fever, chills, and weight loss, Neck: Negative for injury, pm1 pain, and swelling, Cardiovascular: Negative for chest pain, palpitations, and edema, Respiratory: Negative for shortness of breath, cough, wheezing, and pleuritic chest pain. 20:32 Back: Negative for injury and pain, MS/Extremity: Negative for injury and deformity, Skin: Negative for injury, rash, and discoloration, Neuro: Negative for headache, weakness, numbness, tingling, and seizure. 20:32 Abdomen/GI: Positive for abdominal pain, nausea, vomiting, and diarrhea, Negative for constipation. Exam: 20:32 Constitutional: This is a well developed, well nourished patient who is awake, alert, pm1 and in no acute distress. Head/Face: Normocephalic, atraumatic. Neck: Trachea midline, no thyromegaly or masses palpated, and no cervical lymphadenopathy. Supple, full range of motion without nuchal rigidity, or vertebral point tenderness. No Meningismus. Chest/axilla: Normal chest wall appearance and motion. Nontender with no deformity. No lesions are appreciated. Cardiovascular: Regular rate and rhythm with a normal S1 and S2. No gallops, murmurs, or rubs. Normal PMI, no JVD. No pulse deficits. Respiratory: Lungs have equal breath sounds bilaterally, clear to auscultation and percussion. No rales, rhonchi or wheezes noted. No increased work of breathing, no retractions or nasal flaring. 20:32 Back: No spinal tenderness. No costovertebral tenderness. Full range of motion. Skin: Warm, dry with normal turgor. Normal color with no rashes, no lesions, and no evidence of cellulitis. MS/ Extremity: Pulses equal, no cyanosis. Neurovascular intact. Full, normal range of motion. 20:32 Abdomen/GI: Inspection: abdomen appears normal, Bowel sounds: normal, Palpation: soft, in all quadrants, mild abdominal tenderness, in the epigastric area, mass, is not appreciated, rebound tenderness, is not appreciated. 20:32 Neuro: Orientation: is normal, Motor: is normal, moves all fours, Sensation: is normal, no obvious gross deficits. Vital Signs: 19:59 BP 129 / 87; Pulse 92; Resp 18; Temp 98.2; Pulse Ox 99% on R/A; Weight 99.34 kg (R); aj1 Height 5 ft. 5 in. (165.10 cm) (R); Pain 8/10; 22:20 BP 134 / 77; Pulse 84; Resp 16; Temp 98.5; Pulse Ox 96% on R/A; Pain 0/10; ra1 19:59 Body Mass Index 36.44 (99.34 kg, 165.10 cm) aj1 MDM: 20:08 Patient medically screened. andrez 20:32 Refusal of service: The patient/guardian displays adequate decision making capability pm1 and despite a detailed discussion of alternatives, benefits, risks, and consequences refuses: CT Scan. 21:24 Data reviewed: vital signs. Data interpreted: Pulse oximetry: on room air is 99 %. pm1 Interpretation: normal. 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 23:07 Medication response: morphine relieved the patient's pain. Symptoms have resolved, pm1 patient with 0/10 pain level with morphine. 23:07 ED course: Has appointment with Dr. Muir on Sunday. pm1 09/20 20:30 Order name: Basic Metabolic Panel; Complete Time: 21:33 pm09/20 20:30 Order name: CBC with Diff; Complete Time: 21:24 pm09/20 20:30 Order name: Creatinine for Radiology; Complete Time: 21:33 pm09/20 20:30 Order name: Hepatic Function; Complete Time: 21:33 pm09/20 20:30 Order name: Lipase; Complete Time: 21:33 pm09/20 20:31 Order name: IV Saline Lock; Complete Time: 21:14 pm09/20 20:31 Order name: Labs collected and sent; Complete Time: 21:14 pm1 Administered Medications: 20:55 Drug: GI Cocktail without - (Maalox Suspension 30 ml, Lidocaine Liquid 2 % 15 ra1 ml) Route: PO; 23:49 Follow up: Response: No adverse reaction; Pain is unchanged, physician notified ra1 20:55 Drug: Zofran 4 mg Route: IVP; Site: right antecubital; ra1 23:50 Follow up: Response: No adverse reaction; Nausea is decreased ra 21:00 Drug: NS 0.9% 1000 ml Route: IV; Rate: 1000 ml; Site: right antecubital; [facility] 23:50 Follow up: Response: No adverse reaction; Rate change ml/hr; IV Status: Completed ra1 infusion; IV Intake: 1000ml 21:38 Drug: morphine 4 mg Route: IVP; Site: right antecubital; [facility] 23:51 Follow up: Response: No adverse reaction; Pain is decreased ra Disposition: 09/20/19 23:08 Discharged to Home. Impression: Unspecified abdominal pain, Vomiting, Diarrhea, unspecified. - Condition is Stable. - Discharge Instructions: Abdominal Pain, Adult, Diarrhea, Adult, Nausea and Vomiting, Adult. - Prescriptions for Zofran 4 mg Oral Tablet - take 1 tablet by ORAL route every 12 hours As needed; 20 tablet. Tramadol 50 mg Oral Tablet - take 1 tablet by ORAL route every 8 hours As needed as needed; 12 tablet. - Medication Reconciliation Form, Thank You Letter, Antibiotic Education, Prescription Opioid Use form. - Follow up: Emergency Department; When: As needed; Reason: Worsening of condition. Follow up: Mariana Muir MD; When: 2 - 3 days; Reason: Recheck today's complaints, Continuance of care, Re-evaluation by your physician. - Problem is new. - Symptoms have improved. Addendum: 09/22/2019 08:13 Co-signature as Attending Physician, Serge Mccall MD I agree with the assessment and c waters plan of care. Signatures: Dispatcher [employer] EDAlice Carrion RN RN aj1 Serge Mccall MD MD cha Marinas, Patrick, NP THREADING MACHINE OPERATOR pm1 Quirino Williamson, RN RN ra1 Corrections: (The following items were deleted from the chart) 09/20 23:52 23:08 09/20/2019 23:08 Discharged to Home. Impression: Unspecified abdominal pain; ra1 Vomiting; Diarrhea, unspecified. Condition is Stable. Forms are Medication Reconciliation Form, Thank You Letter, Antibiotic Education, Prescription Opioid Use. Follow up: Emergency Department; When: As needed; Reason: Worsening of condition. Follow up: Mariana Muir; When: 2 - 3 days; Reason: Recheck today's complaints, Continuance of care, Re-evaluation by your physician. Problem is new. Symptoms have improved. pm1
[2019-09-21 02:11] VITALS: TEMP 98.5
[2019-09-21 02:19] VITALS: O2SAT 100
[2019-09-21 02:21] VITALS: BP 132/77
== END 2019-09-20 23:52 | disposition home or self-care (01) ==
LOC: ER 19:42
DX: R19.7 Diarrhea, unspecified (principal); R11.10 Vomiting, unspecified; I10 Essential (primary) hypertension; E03.9 Hypothyroidism, unspecified; E11.9 Type 2 diabetes mellitus without complications; Z88.0 Allergy status to penicillin; Z88.1 Allergy status to other antibiotic agents; Z88.2 Allergy status to sulfonamides; Z88.5 Allergy status to narcotic agent
CPT/HCPCS: 96361; 85025; 80048; 36415; 80076; 83690; 96375; 96374; 99284; J7030; J2405

== ENCOUNTER 2022-11-16 20:02 | Inpatient (IN) | payer OTHER ==
--- OUTSIDE RECORDS SUMMARY | 2022-11-16 20:06 | XMS REPORT | Continuity of Care Document ---
:1975 Author Organization [facility] Address [address] [facility] [address] [place] [address] Care Team Providers Name Role Phone Pcp, Patient Does Not Have A Primary Care Physician [phone] Skip Pardo Attending Clinician Unavailable Doctor Unassigned, [place] Attending Clinician Unavailable JEFFREY ENAMORADO Attending Clinician Unavailable Therapy, [facility] Cov[facility] Infusion Attending Clinician Unavailable Jeffrey Enamorado MD Attending Clinician Skip Pardo Admitting Clinician Unavailable Payers Payer Name Policy Type Policy Number Effective Date Expiration Date Shawn fiore [facility]/T 53 [id number] Common Sp wu - [facility] Problems Condition Condition Condition Status Onset Resolution Last Treating Co mments Source Name Details Category Date Date Treatment Clinician Date [id number] Primary Problem Comm on osteoarthr Spirit itis of - CHI right knee [facility] [id number] Pain in Problem Common pelvis Spirit [facility] [id number] Trochanter Problem C ommon ic Spirit bursitis - CHI of right [facility] [id number] Tendinitis Problem Co mmon of right [facility] hip flexor [facility] Allergies, Adverse Reactions, Alerts Allergy Allergy Status Severity Reaction(s) Onset Inactive Treating Comm ents Source Name Type Date Date Clinician Penicill Propensi Active Swelling Univ ers ins ty to 8-28 ity of adverse 00:00: [place] reaction 00 Medical s Branch Sulfa Propensi Active Itching 2020-0 Univers (Sulfona ty to 8-28 ity of mide adverse 00:00: [place] Antibiot reaction 00 Medica l ics) s Branch CODEINE DRUG Active ITCHING 2020-0 Univers INGREDI 8-28 ity of 00:00: [place] 00 Medical Branch LEVOFLOX DRUG Active ITCHING 2020-0 Univers ACIN INGREDI 8-28 ity of 00:00: 00 Medical Branch PENICILL Drug Active ITCHING 2020-0 Univers INS Class 8-28 ity of 00:00: [place] 00 Medical Branch SULFA Drug Active ITCHING 2020-0 Univers (SULFONA Class 8-28 ity of MIDE 00:00: [place] ANTIBIOT 00 Medical ICS) Branch Codeine Propensi Active Itching 2020-0 Univer s ty to 8-28 ity of adverse 00:00: [place] reaction 00 Medical s Branch Levoflox Propensi Active Itching 2020-0 Unive rs acin ty to 8-28 ity of adverse 00:00: [place] reaction 00 Medical s Branch NO KNOWN Drug Active Univers ALLERGIE Class ity of S [facility] 0 Drug Active Unknown Common allergy [facility] codeine codeine Active Unknown Common [facility] Social History Social Habit Start Date Stop Date Quantity Comments Source History of Tobacco Use Co mmon [facility] Sex Assigned At Com mon [facility] Exposure to SARS-CoV-2 Yes Un [facility] (event) Medical Branch Smoking Status Start Date Stop Date Source Unknown if ever smoked [facility] Never Smoker Common [facility] Medications Ordered Filled Start Stop Current Ordering Indication Dosage Frequency Signature Comments Components Source Medication Medication Date Date Medication? Clinician (SIG) Name Name Kenalog Kenalog 2021-09 No 40mg Common (Triamcinol (Triamcinol 2-12 S pirit one) one) 00:00: [facility] Bupivicaine Bupivicaine 2021-09 No 2.5mg Common Moody Moody 2-12 Spirit 00:00: - [facility] Celestone Celestone No 6mg Com mon Soluspan Soluspan 9-13 Spirit (Betamethas (Betamethas 00:00: [facility] one) one) 00 [facility] Lidocaine Lidocaine 2-0 No 10mg Com mon 9-13 Spirit 00:00: - CHI 00 [facility] Celestone Celestone 2021-0 No 6mg Com mon Soluspan Soluspan 05-23 Spirit (Betamethas (Betamethas 00:00: - CHI one) one) 00 [facility] Lidocaine Lidocaine 2-0 No 10mg Com mon 9-13 Spirit 00:00: - CHI 00 [facility] Bupivicaine Bupivicaine 2021-0 No 2.5mg Common Moody Moody 5-03 Spirit 00:00: - CHI 00 [facility] Kenalog Kenalog 2021-0 No 40mg Common (Triamcinol (Triamcinol 5-03 S pirit one) one) 00:00: - CHI 00 [facility] Bupivicaine Bupivicaine 2-0 No 2.5mg Common Moody Moody 5-03 Spirit 00:00: - CHI 00 [facility] Kenalog Kenalog 2021-0 No 40mg Common (Triamcinol (Triamcinol 5-03 S pirit one) one) 00:00: - CHI 00 [facility] Bupivicaine Bupivicaine 2-0 No 2.5mg Common Moody Moody 5-03 Spirit 00:00: - CHI 00 [facility] Kenalog Kenalog 2-0 No 40mg Common (Triamcinol (Triamcinol 5-03 S pirit one) one) 00:00: - CHI 00 [facility] Bupivicaine Bupivicaine 2-0 No 2.5mg Common Moody Moody 5-03 Spirit 00:00: - CHI 00 [facility] Kenalog Kenalog 2-0 No 40mg Common (Triamcinol (Triamcinol 5-03 S pirit one) one) 00:00: - CHI 00 [facility] Diclofenac Diclofenac 2-0 No BID Diclofenac Potassium Potassium 1-05 Potassium 50 MG 50 MG 00:00: 50 MG 00 Diclofenac Diclofenac 2-0 No BID Diclofenac Potassium Potassium 1-05 Potassium 50 MG 50 MG 00:00: 50 MG 00 Diclofenac Diclofenac 2-0 No BID Diclofenac Potassium Potassium 1-05 Potassium 50 MG 50 MG 00:00: 50 MG 00 Diclofenac Diclofenac 2021-0 No BID Diclofenac Potassium Potassium 1-05 Potassium 50 MG 50 MG 00:00: 50 MG 00 Diclofenac Diclofenac 2021-0 No BID Diclofenac Potassium Potassium 1-05 Potassium 50 MG 50 MG 00:00: 50 MG 00 Diclofenac Diclofenac 2021-0 No QID Diclofenac Sodium 1 % Sodium 1 % 1-04 Sodium 1 % 00:00: 00 Diclofenac Diclofenac 2021-0 No QID Diclofenac Sodium 1 % Sodium 1 % 1-04 Sodium 1 % 00:00: 00 Diclofenac Diclofenac 2021-0 No QID Diclofenac Sodium 1 % Sodium 1 % 1-04 Sodium 1 % 00:00: 00 Diclofenac Diclofenac 2021-0 No QID Diclofenac Sodium 1 % Sodium 1 % 1-04 Sodium 1 % 00:00: 00 Diclofenac Diclofenac 2021-0 No QID Diclofenac Sodium 1 % Sodium 1 % 1-04 Sodium 1 % 00:00: 00 Bupivicaine Bupivicaine 2020- No 2.5mg Common Moody Moody 1-08 Spirit 00:00: - CHI 00 [facility] Kenalog Kenalog 2020-09 No 40mg Common (Triamcinol (Triamcinol 1-08 S pirit one) one) 00:00: - CHI 00 [facility] Bupivicaine Bupivicaine 2020- No 2.5mg Common Moody Moody 1-08 Spirit 00:00: - CHI 00 [facility] Kenalog Kenalog 2020-09 No 40mg Common (Triamcinol (Triamcinol 1-08 S pirit one) one) 00:00: - CHI 00 [facility] Bupivicaine Bupivicaine 2020-1 No 2.5mg Common Moody Moody 1-08 Spirit 00:00: - CHI 00 [facility] Kenalog Kenalog 2020-09 No 40mg Common (Triamcinol (Triamcinol 1-08 S pirit one) one) 00:00: - CHI 00 [facility] Bupivicaine Bupivicaine 2020- No 2.5mg Common Moody Moody 1-08 Spirit 00:00: - CHI 00 [facility] Kenalog Kenalog 2020-09 No 40mg Common (Triamcinol (Triamcinol 1-08 S pirit one) one) 00:00: - CHI 00 [facility] Losartan Losartan Yes Kehinde 1 tablet Common Potassium Potassium [facility] t - CHI [facility] Levothyroxi Levothyroxi Yes Kehinde 1 tablet Common ne Sodium ne Sodium Davis on an Spir it empty - CHI stomach in [facility] MetFORMIN MetFORMIN Yes Kehinde 1 tablet Common HCl ER HCl ER Davis with Spirit evening - CHI meal [facility] ProAir HFA ProAir HFA No ProAir HFA Diclofenac Diclofenac No Diclofenac metFORMIN metFORMIN No 1{table QD metFORMIN HCl ER 500 HCl ER 500 t_with_ HCl ER 500 MG MG evening MG _meal} Gabapentin Gabapentin No Gabapentin Breo Breo No Breo Ellipta Ellipta Ellipta Jardiance Jardiance No Jardiance methylPREDN methylPREDN No methylPRED ISolone 4 ISolone 4 NISolone 4 MG MG MG metFORMIN metFORMIN No 1{table QD metFORMIN HCl ER 500 HCl ER 500 t_with_ HCl ER 500 MG MG evening MG _meal} Breo Breo No Breo Ellipta Ellipta Ellipta methylPREDN methylPREDN No methylPRED ISolone 4 ISolone 4 NISolone 4 MG MG MG Tresiba Tresiba No Tresiba Losartan Losartan No 1{table QD Losartan Potassium Potassium t} Potassium 50 MG 50 MG 50 MG atorvastati atorvastati No atorvastat n n in Levothyroxi Levothyroxi No QD Levothyrox ne Sodium ne Sodium ine Sodium 100 MCG 100 MCG 100 MCG DULoxetine DULoxetine No DULoxetine HCl HCl HCl Gabapentin Gabapentin No Gabapentin ProAir HFA ProAir HFA No ProAir HFA Jardiance Jardiance No Jardiance Diclofenac Diclofenac No Diclofenac Tresiba Tresiba No Tresiba Breo Breo No Breo Ellipta Ellipta Ellipta atorvastati atorvastati No atorvastat n n in Levothyroxi Levothyroxi No QD Levothyrox ne Sodium ne Sodium ine Sodium 100 MCG 100 MCG 100 MCG ProAir HFA ProAir HFA No ProAir HFA DULoxetine DULoxetine No DULoxetine HCl HCl HCl Losartan Losartan No 1{table QD Losartan Potassium Potassium t} Potassium 50 MG 50 MG 50 MG atorvastati atorvastati No atorvastat n n in DULoxetine DULoxetine No DULoxetine HCl HCl HCl ProAir HFA ProAir HFA No ProAir HFA metFORMIN metFORMIN No 1{table QD metFORMIN HCl ER 500 HCl ER 500 t_with_ HCl ER 500 MG MG evening MG _meal} Levothyroxi Levothyroxi No QD Levothyrox ne Sodium ne Sodium ine Sodium 100 MCG 100 MCG 100 MCG Gabapentin Gabapentin No Gabapentin methylPREDN methylPREDN No methylPRED ISolone 4 ISolone 4 NISolone 4 MG MG MG Tresiba Tresiba No Tresiba Breo Breo No Breo Ellipta Ellipta Ellipta Diclofenac Diclofenac No Diclofenac Jardiance Jardiance No Jardiance Losartan Losartan No 1{table QD Losartan Potassium Potassium t} Potassium 50 MG 50 MG 50 MG atorvastati atorvastati No atorvastat n n in DULoxetine DULoxetine No DULoxetine HCl HCl HCl ProAir HFA ProAir HFA No ProAir HFA metFORMIN metFORMIN No 1{table QD metFORMIN HCl ER 500 HCl ER 500 t_with_ HCl ER 500 MG MG evening MG _meal} Levothyroxi Levothyroxi No QD Levothyrox ne Sodium ne Sodium ine Sodium 100 MCG 100 MCG 100 MCG Gabapentin Gabapentin No Gabapentin methylPREDN methylPREDN No methylPRED ISolone 4 ISolone 4 NISolone 4 MG MG MG Tresiba Tresiba No Tresiba Breo Breo No Breo Ellipta Ellipta Ellipta Diclofenac Diclofenac No Diclofenac Jardiance Jardiance No Jardiance Losartan Losartan No 1{table QD Losartan Potassium Potassium t} Potassium 50 MG 50 MG 50 MG Tresiba Tresiba No Tresiba Levothyroxi Levothyroxi No QD Levothyrox ne Sodium ne Sodium ine Sodium 100 MCG 100 MCG 100 MCG DULoxetine DULoxetine No DULoxetine HCl HCl HCl atorvastati atorvastati No atorvastat n n in Losartan Losartan No 1{table QD Losartan Potassium Potassium t} Potassium 50 MG 50 MG 50 MG ProAir HFA ProAir HFA No ProAir HFA Diclofenac Diclofenac No Diclofenac metFORMIN metFORMIN No 1{table QD metFORMIN HCl ER 500 HCl ER 500 t_with_ HCl ER 500 MG MG evening MG _meal} Gabapentin Gabapentin No Gabapentin Breo Breo No Breo Ellipta Ellipta Ellipta Jardiance Jardiance No Jardiance methylPREDN methylPREDN No methylPRED ISolone 4 ISolone 4 NISolone 4 MG MG MG Tresiba Tresiba No Tresiba Levothyroxi Levothyroxi No QD Levothyrox ne Sodium ne Sodium ine Sodium 100 MCG 100 MCG 100 MCG DULoxetine DULoxetine No DULoxetine HCl HCl HCl atorvastati atorvastati No atorvastat n n in Losartan Losartan No 1{table QD Losartan Potassium Potassium t} Potassium 50 MG 50 MG 50 MG Vital Signs Vital Name Observation Time Observation Value Comments Source height 2022-08-21 15:00:00 65 [in_i] [facility] weight 2022-08-21 15:00:00 230 [lb_av] [facility] temperature 2022-08-21 15:00:00 98.2 [degF] [facility] bmi 2022-08-21 15:00:00 38.27 kg/m2 [facility] blood pressure 2022-08-21 15:00:00 127 mm[Hg] Common Spirit - systolic [facility] blood pressure 2022-08-21 15:00:00 76 mm[Hg] Common Spirit - diastolic [facility] height 2022-05-23 13:00:00 65 [in_i] [facility] weight 2022-05-23 13:00:00 247 [lb_av] [facility] temperature 2022-05-23 13:00:00 97.3 [degF] [facility] bmi 2022-05-23 13:00:00 41.1 kg/m2 [facility] blood pressure 2022-05-23 13:00:00 136 mm[Hg] Common Spirit - systolic [facility] blood pressure 2022-05-23 13:00:00 84 mm[Hg] Common Spirit - diastolic [facility] height 2022-01-10 08:00:00 65 [in_i] [facility] weight 2022-01-10 08:00:00 248.2 [lb_av] [facility] temperature 2022-01-10 08:00:00 97.8 [degF] Common S pirit - [facility] bmi 2022-01-10 08:00:00 41.3 kg/m2 Common S pirit - [facility] blood pressure 2022-01-10 08:00:00 130 mm[Hg] Common Spirit - systolic [facility] blood pressure 2022-01-10 08:00:00 84 mm[Hg] Common Spirit - diastolic [facility] height 2021-09-13 15:45:00 65 [in_i] Common S [facility] weight 2021-09-13 15:45:00 237 [lb_av] [facility] bmi 2021-09-13 15:45:00 39.43 kg/m2 [facility] blood pressure 2021-09-13 15:45:00 125 mm[Hg] Common Spirit - systolic [facility] blood pressure 2021-09-13 15:45:00 75 mm[Hg] Common Spirit - diastolic [facility] Systolic blood 2021-05-07 17:03:00 161 mm[Hg] Univer sity of [facility] Diastolic blood 2021-05-07 17:03:00 92 mm[Hg] Unive rsity of pressure [facility] Heart rate 2021-05-07 17:03:00 100 /min [facility] Body temperature 2021-05-07 17:03:[address] [facility] rate 2021-05-07 17:03:00 21 /min [facility] Oxygen saturation in 2021-05-07 17:03:00 97 /min [facility] Arterial blood by [facility] Pulse oximetry Branch Body height 2021-05-07 16:24:00 165.1 cm [facility] Body weight 2021-05-07 16:24:00 101.152 kg [facility] BMI 2021-05-07 16:24:00 37.11 kg/m2 [facility] Procedures Procedure Date / Time Performed Performing Clinician Bayron mims [id number] CONSENT 2021-05-10 05:01:00 Doctor Unassigned, No Unive [facility] Name Medical Branch Encounters Start End Encounter Admission Attending Care Care Encounter Source Date/Time Date/Time Type Type Clinicians Facility Department ID 2022-05-18 Outpatient [place] STLMLC STLMLC [id number] - Common 16:27:00 a, Skip [facility] 2022-01-09 Outpatient [place] STLMLC STLMLC [id number] - Common 15:04:00 a, Skip [facility] 2021-10-05 Outpatient [place] STLMLC STLMLC [id number] Common 14:30:10 a, Skip [facility] 2021-10-05 Outpatient [place] STLMLC STLMLC [id number] - Common 14:08:30 a, Skip 11394 [facility] 2021-10-05 Outpatient [place] STLMLC STLMLC [id number] - Common 13:29:39 a, Skip 70183 [facility] 2021-10-05 Outpatient [place] STLMLC STLMLC [id number] - Common 13:13:28 a, Skip 15989 [facility] 2021-10-05 Outpatient [place] STLMLC STLMLC [id number] - Common 13:05:57 a, Skip 56910 [facility] 2021-10-05 Outpatient [place] STLMLC STLMLC [id number] - Common 13:03:51 a, Skip 86711 [facility] 2022-08-21 2022-08-21 OFFICE STLMLC STLMLC [id number] Co mmon 00:00:00 00:00:00 VISIT [facility] PT - CHI [address] 2022-05-23 2022-05-23 OFFICE STLMLC STLMLC [id number] Co mmon 00:00:00 00:00:00 VISIT [facility] PT - CHI [address] 2022-02-01 2022-02-01 (TEL) STLMLC STLMLC [id number] Co mmon 00:00:00 00:00:00 Spirit - CHI [facility] 2022-01-10 2022-01-10 OFFICE STLMLC STLMLC [id number] Co mmon 00:00:00 00:00:00 VISIT Spirit ESTAB PT - CHI LEVEL 4 [facility] 2021-09-13 2021-09-13 (TEL) STLMLC STLMLC [id number] Co mmon 00:00:00 00:00:00 Spirit CHI [facility] 2021-09-13 2021-09-13 OFFICE STLMLC STLMLC [id number] Co mmon 00:00:00 00:00:00 VISIT [facility] ESTAB PT - CHI LEVEL 4 [facility] 2021-05-10 2021-05-10 Orders Doctor EMMA [id number] Univers 00:00:00 00:00:00 Only Unassigned, DMITRIY [id number] ity of [facility] [id number] Brad as [id number] [place] [address] Branch 2021-05-07 2021-05-07 Outpatient Sada ENAMORADO [facility] [id number] Univers 11:00:00 11:00:00 JEFFREY rao [facility] 2021-05-07 2021-05-07 Nurse Therapy, Adc Covid Infusion [facility] [id number] Univers 08:28:46 09:28:46 Visit Jeffrey Enamorado [id number] [facility] [id number] [place] [id number] [facility] 053 Branch 2021-04-12 2021-04-12 Outpatient STLMLC STLMLC [id number] Common 00:00:00 00:00:00 [facility] 2021-02-23 2021-02-23 Outpatient STLMLC STLMLC [id number] Common 00:00:00 00:00:00 [facility] 2018-09-17 2018-09-17 [id number] Common 15:30:00 15:30:00 [facility] - [facility] Results Test Description Test Time Test Comments Results Result Sourc e Comments SCR MAMM 2022-10-18 BILATERAL GRADY 12:03:55 CAD DIGITAL Name: Xenia : 1975 Sex: F - SCR MAMM BILATERAL GRADY CAD DIGITALBILATERAL DIGITAL SCREENING MAMMOGRAM 3D/2D WITH CAD: 10/16/2022LINICAL: Family history of breast cancer. Asymptomatic. Digital breast tomosynthesis was performed in addition to routine CC and MLO views. Current mammographic images were evaluated by [employer] CAD (computer-aided detection) software. Comparison is made to exams dated 10/12/2017 mammogram - [facility] and 01/26/2015 mammogram - [facility]. There are scattered fibroglandular tissues in both breasts. No suspicious mass, architectural distortion, malignant type calcification, or lymph node abnormality detected. Breast architecture is stable compared to prior exams.IMPRESSION: NEGATIVEThere is no mammographic evidence of malignancy. Resume annual screening mammography in one year. (10/17/2023) Kahlil Mcgee M.D. et/penrad:10/18/2022 12:03:55 Instructor Private: Camila Puga MM, [facility]: BIRADS 1-2 Normal Mammogram BI-RADS: 1 Negative
--- NOTE | 2022-11-16 21:32 | RAD REPORT ---
EXAM DESCRIPTION: RAD - Tib Fib Right - 11/16/2022 9:24 pm CLINICAL HISTORY: Pain;Swelling COMPARISON: No comparisons FINDINGS: Soft tissue swelling is seen anterior to be along the pretibial soft tissues. No soft tiss ue gas. No fracture.
--- NOTE | 2022-11-16 21:32 | RAD REPORT ---
EXAM DESCRIPTION: RAD - Chest Single View - 11/16/2022 9:24 pm CLINICAL HISTORY: edema Chest pain. COMPARISON: CHEST PA AND LAT 2 VIEW dated 11/01/2015; CHEST SINGLE VIEW dated 05/18/2012; CHEST PA AND LAT 2 VIEW dated 11/10/2010; CHEST PA AND LAT 2 VIEW dated 03/23/2009 FINDINGS: Portable technique limits examination quality. Mild interstitial pulmonary edema seen. The heart is mildly enlarged in size. No displaced fractures. IMPRESSION: Mild CHF.
[2022-11-16 21:56] LABS: Absolute Lymphocytes (CBC) 2.7 K/uL (0.7-4.9); Hematocrit 37.5 % (36.0-45.0); Lymphocytes % 34.6 % (15.3-44.8); MCV 96.4 fL (80-100); MPV 10.2 fL (7.6-11.3); RBC Red Blood Cell Count 3.89 M/uL (3.86-4.86)
--- NOTE | 2022-11-16 22:05 | RAD REPORT ---
EXAM DESCRIPTION: US - Extremity Venous [facility] - 11/16/2022 9:52 pm CLINICAL HISTORY: Pain;Swelling Leg swelling and edema. COMPARISON: No comparisons FINDINGS: Right lower extremity venous system was interrogated with Doppler technique. Normal flow, compressibility and augmentation was noted. There is no DVT present. IMPRESSION: No evidence of right lower extremity deep venous thrombosis.
[2022-11-16 22:07] LABS: SARS-CoV-2 Antigen Rapid Res Negative (Negative)
[2022-11-16 22:11] LABS: Magnesium 2.1 mg/dL (1.6-2.4); Potassium 3.9 mmol/L (3.5-5.1)
[2022-11-16] MEDS ORDERED: VANCOMYCIN 1 GM/VIAL ONE (22:23)
[2022-11-16] MEDS ORDERED: NA CHLORIDE 0.9% 250 ML ONE (22:23)
--- NOTE | 2022-11-16 23:50 | P.HP ---
Certification for Inpatient Patient admitted to: Observation With expected LOS: <2 Midnights Patient will require the following post-hospital care: None Practitioner: I am a practitioner with admitting privileges, knowledge of patient current condition, hospital course, and medical plan of care. Services: Services provided to patient in accordance with Admission requirements found in Title 42 Section 412.3 of the Code of Federal Regulations Patient History Date of Service: 11/16/22 Primary Care Provider: Roldan Reason for admission: Cellulitus RLE History of Present Illness: Patient is a 47-year-old female with past medical history of type 2 diabetes, hypertension, hypothyroidism, and asthma who presented to the emergency [facility] with complaints of a leg abrasion. Patient states that she scraped her leg 5 days ago in the garage and sustained a wound. She went to urgent care the next day and received a prescription for Keflex and clindamycin. The wound was still not improving after 2 days so she saw Dr. Montilla who added ciprofloxacin. Wound continued to get worse despite antibiotics and cleaning the wound with Hibiclens. Today her Labs are within normal limits, Vital signs stable, no concerns for sepsis at this time. She was started on vancomycin and cefepime. ED provider wishes admit patient for further management of the cellulitis, failed outpatient treatment. Allergies Penicillins Allergy (Severe, Verified 05/18/12 21:02) Shortness of breath Sulfa (Sulfonamide Antibiotics) [Sulfa(Sulfonamide Antibiotics)] Allergy (Severe, Verified 05/18/12 21:02) Shortness of breath codeine Allergy (Unverified 12/21/14 10:51) Unknown levofloxacin [From Levaquin] Allergy (Unverified 12/21/14 10:51) Unknown SULFA (SULFONAMIDES) Allergy (Uncoded 12/21/14 10:51) Unknown Home medications list reviewed: Yes Home Medications: Famotidine [Pepcid] 20 mg PO BID #0 tablet 05/19/12 Ondansetron [Zofran Odt] 4 mg PO Q4HP PRN #0 tab.rapdis 05/19/12 Tramadol HCl 50 mg PO Q4HP PRN #0 tablet 05/19/12 - Past Medical/Surgical History Diabetic: Yes -: Type 2 Diabetes, Insulin Dependent -: Hypertension -: Asthma -: Hypothyroidism -: Cholecystectomy -: Psychosocial/ Personal History: Patient is . 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 - Family History Family History: Reviewed- Non-Contributory - Social History Smoking Status: Never smoker Alcohol use: Yes CD- Drugs: No Caffeine use: Yes Place of Residence: Home Review of Systems Musculoskeletal: Other (Bilateral hip pain) Integumentary: Other (Abrasion RLE) Physical Examination - Vital Signs Temperature: 98.6 F Blood Pressure: 108/54 Pulse: 87 Respirations: 16 Pulse Ox (%): 97 - Physical Exam General: Alert, In no apparent distress HEENT: Atraumatic, EOMI, Sclerae nonicteric Neck: Supple, 2+ carotid pulse no bruit Respiratory: Clear to auscultation bilaterally, Normal air movement Cardiovascular: Regular rate/rhythm, Normal S1 S2 Gastrointestinal: Normal bowel sounds, No tenderness Musculoskeletal: No tenderness Integumentary: Skin lesion, Erythema, Warmth, Other ([id number] irregular shaped abrasion right calvillo with surrounding erythema ) Neurological: Normal speech, Normal strength at 5/5 x4 extr, Sensation intact, Normal affect - Studies Laboratory Data (last 24 hrs) 11/16/22 21:25: WBC 7.90, Hgb 12.4, Hct 37.5, Plt Count 172 11/16/22 21:25: Sodium 141, Potassium 3.9, BUN 25 H, Creatinine 0.84, Glucose 200 H, Magnesium 2.1 Assessment and Plan - Problems (Diagnosis) (1) Cellulitis of leg without foot, right Current Visit: Yes Status: Acute (2) Type 2 diabetes mellitus Current Visit: Yes Status: Chronic Qualifiers: Diabetes mellitus usp insulin use: with usp use Diabetes mellitus complication status: with hyperglycemia Qualified Code(s): E11.65 - Type 2 diabetes mellitus with hyperglycemia; 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 Continue IV vancomycin and cefepime. No concern for sepsis at this time. Strict glucose control with sliding scale. Check A1c in the morning. Wound care consult. Consider general surgery consult if wound is not improving. Monitor and replete electrolytes per protocol. Reconcile and continue home medications. Discharge Plan: Home Plan to discharge in: 24 Hours - Advance Directives Does patient have a Living Will: No Does patient have a Durable POA for Healthcare: No - Code Status/Comfort Care Code Status Assessed: Yes Code Status: Full Code Physician Review: Patient Assessed, Agree with Above Assessment and Plan Critical Care: No Time Spent Managing Pts Care (In Minutes): 50
[2022-11-17] MEDS ORDERED: NA CHLORIDE 0.9% 100 ML ONE (00:07)
[2022-11-17] MEDS ORDERED: HYDROCODONE/APAP 7.5/325 MG TAB ONE (00:07)
[2022-11-17] MEDS ORDERED: CEFEPIME 1 GM/VIAL ONE (00:08)
[2022-11-17] MEDS ORDERED: ONDANSETRON 4 MG/2 ML VIAL IV PRN (00:15)
[2022-11-17] MEDS ORDERED: VANCOMYCIN 1 GM in NA CHLORIDE 0.9% 250 ML IVPB SCH (00:15)
[2022-11-17 01:14] VITALS: BMI 43.1
[2022-11-17] MEDS ORDERED: VANCOMYCIN 1 GM in NA CHLORIDE 0.9% 250 ML IVPB ONE (01:30)
[2022-11-17 04:59] LABS: Absolute Lymphocytes (CBC) 2.9 K/uL (0.7-4.9); Hematocrit 34.8 % (36.0-45.0); Lymphocytes % 41.8 % (15.3-44.8); MCV 97.1 fL (80-100); MPV 10.1 fL (7.6-11.3); RBC Red Blood Cell Count 3.59 M/uL (3.86-4.86)
[2022-11-17 05:14] LABS: BUN Blood Urea Nitrogen 22 mg/dL (7-18); Bicarbonate 27 mmol/L (21-32); Glomerular Filtration Rate 102 ml/min (=/>90); Glucose Level 250 mg/dL (74-106); HDL Cholesterol 43 mg/dL (40-60); LDL Cholesterol, Calculated 42 mg/dL (<130); Potassium 3.9 mmol/L (3.5-5.1); Sodium Level 140 mmol/L (136-145)
[2022-11-17 05:32] LABS: Specific Gravity 1.018 (1.005-1.030); Urine Bacteria <20 /HPF (<20); Urine Bilirubin NEGATIVE (Negative); Urine Blood Negative (Negative); Urine Clarity Clear (Clear); Urine Color Light-Yellow (Yellow); Urine Glucose TRACE (Negative); Urine Granular Casts 0-5 /LPF (None Seen); Urine Mucus Slight /HPF (None Seen); Urine Protein NEGATIVE (Negative); Urine RBC <5 /HPF (None Seen); Urine Urobilinogen Normal (Normal)
[2022-11-17 05:33] LABS: C-Reactive Protein < 2.90 mg/L (<3.00)
[2022-11-17] MEDS ORDERED: POTASSIUM CL SA 10 MEQ TAB PO ONE (05:34)
[2022-11-17] MEDS ORDERED: CEFEPIME 1 GM in NA CHLORIDE 0.9% 100 ML IV SCH (09:00)
[2022-11-17] MEDS: INSULIN -REGULAR HUMAN 50 UNIT/0.5 ML ML SQ SCH ×4 (09:43→21:31)
[2022-11-17] MEDS: CEFEPIME 2 GM in NA CHLORIDE 0.9% 100 ML IV SCH ×2 (09:44→16:58)
[2022-11-17] MEDS: ACETAMINOPHEN 500 MG TAB PO PRN ×2 (09:47→17:01)
[2022-11-17 11:26] VITALS: O2SAT 98
--- NOTE | 2022-11-17 16:39 | P.PN ---
Subjective Date of Service: 11/17/22 Primary Care Provider: Roldan Chief Complaint: Cellulitus RLE Patient states she feels better today. No recorded fever. Lower extremity swelling. Patient reports pain only when she bears weight on the right leg. Physical Examination - Vital Signs Temperature: 97.1 F Blood Pressure: 127/61 Pulse: 90 Respirations: 16 Pulse Ox (%): 100 - Studies Laboratory Data (last 24 hrs) 11/17/22 04:05: WBC 6.90, Hgb 11.5 L, Hct 34.8 L, Plt Count 141 L 11/17/22 04:05: Sodium 140, Potassium 3.9, BUN 22 H, Creatinine 0.72, Glucose 250 H, Triglycerides 69, Cholesterol 99, HDL Cholesterol 43, Cholesterol/HDL Ratio 2.30 11/16/22 21:25: WBC 7.90, Hgb 12.4, Hct 37.5, Plt Count 172 11/16/22 21:25: Sodium 141, Potassium 3.9, BUN 25 H, Creatinine 0.84, Glucose 200 H, Magnesium 2.1 Assessment And Plan - Current Problems (Diagnosis) (1) Lower extremity edema Current Visit: Yes Status: Acute (2) Cellulitis of leg without foot, right Current Visit: Yes Status: Acute (3) Hypertension Current Visit: Yes Status: Chronic Qualifiers: Hypertension type: primary hypertension Qualified Code(s): I10 - Essential (primary) hypertension (4) Hypothyroidism Current Visit: Yes Status: Chronic Qualifiers: Hypothyroidism type: unspecified Qualified Code(s): E03.9 - Hypothyroidism, unspecified (5) Type 2 diabetes mellitus Current Visit: Yes Status: Chronic Qualifiers: Diabetes mellitus medical terminologist insulin use: with senior care use Diabetes mellitus complication status: with hyperglycemia Qualified Code(s): E11.65 - Type 2 diabetes mellitus with hyperglycemia; Z79.4 - long-term (current) use of insulin - Plan Physical Exam General: Alert, In no apparent distress HEENT: Atraumatic, EOMI, Sclerae nonicteric Neck: Supple, 2+ carotid pulse no bruit Respiratory: Clear to auscultation bilaterally, Normal air movement Cardiovascular: Regular rate/rhythm, Normal S1 S2 Gastrointestinal: Normal bowel sounds, No tenderness Musculoskeletal: No tenderness Integumentary: Area of abrasion on the right calvillo with surrounding Erythema- erythema improved from yesterday, 1+ bilateral lower extremity pitting edema. Neurological: Normal speech, no focal motor deficit. Plan: Patient failed outpatient therapy with multiple oral antibiotics. Continue aggressive antibiotics-IV cefepime and vancomycin. Keep lower extremity elevated. Blood cultures are pending. Insulin sliding scale for glucose management. Resume home dose Lantus insulin. Hold antihypertensives for now.
[2022-11-17] MEDS ORDERED: VANCOMYCIN 1.5 GM in NA CHLORIDE 0.9% 500 ML IVPB SCH (17:00)
[2022-11-17] MEDS ORDERED: VANCOMYCIN 2 GM in NA CHLORIDE 0.9% 500 ML IVPB SCH (20:00)
[2022-11-17] MEDS ORDERED: HOME MED 1 EA UNK (Insulin Degludec [Tresiba] 100 UNIT/ML Vial) SQ SCH (21:00)
[2022-11-17] MEDS ORDERED: INSULIN GLARGINE 100 UNIT/ML SQ SCH (21:00)
[2022-11-17] MEDS ORDERED: ATORVASTATIN 20 MG TAB PO SCH (21:00)
[2022-11-18] MEDS: CEFEPIME 2 GM in NA CHLORIDE 0.9% 100 ML IV SCH ×2 (00:56→08:22)
[2022-11-18] MEDS: ACETAMINOPHEN 500 MG TAB PO PRN (03:52)
[2022-11-18 05:05] LABS: Potassium 3.8 mmol/L (3.5-5.1)
[2022-11-18] MEDS ORDERED: LEVOTHYROXINE SOD 0.088 MG TAB PO SCH (06:00)
[2022-11-18] MEDS: INSULIN -REGULAR HUMAN 50 UNIT/0.5 ML ML SQ SCH (07:30)
[2022-11-18] MEDS ORDERED: POTASSIUM CL SA 10 MEQ TAB PO ONE (08:00)
[2022-11-18 08:16] VITALS: BP 119/62; TEMP 97.2
[2022-11-18] MEDS ORDERED: PIOGLITAZONE 15 MG TAB PO SCH (09:00)
[2022-11-18] MEDS ORDERED: PIOGLITAZONE HCL 30 MG PO SCH (09:00)
[2022-11-18] MEDS ORDERED: DULOXETINE 30 MG CAP PO SCH (09:00)
[2022-11-18] MEDS ORDERED: LOSARTAN POTASSIUM 50 MG TABLET PO SCH (09:00)
--- NOTE | 2022-11-18 09:14 | P.DS ---
Admission Date: 11/17/22 Discharge Date: 11/18/22 Primary Care Provider: Roldan Disposition: ROUTINE DISCHARGE Discharge Condition: FAIR Reason for Admission: Cellulitus RLE - Problems (1) Lower extremity edema Status: Acute (2) Cellulitis of leg without foot, right Status: Acute (3) Hypertension Status: Chronic Qualifiers: Hypertension type: primary hypertension Qualified Code(s): I10 - Essential (primary) hypertension (4) Hypothyroidism Status: Chronic Qualifiers: Hypothyroidism type: unspecified Qualified Code(s): E03.9 - Hypothyroidism, unspecified (5) Type 2 diabetes mellitus Status: Chronic Qualifiers: Diabetes mellitus intermediate insulin use: with terminal operator use Diabetes mellitus complication status: with hyperglycemia Qualified Code(s): E11.65 - Type 2 diabetes mellitus with hyperglycemia; Z79.4 - terminal operator (current) use of insulin Brief History of Present Illness: Patient is a 47-year-old female with past medical history of type 2 diabetes, hypertension, hypothyroidism, and asthma who presented to the emergency department with complaints of a leg abrasion. Patient states that she scraped her leg 5 days prior in a garage and sustained a wound. She went to urgent care the next day and received a prescription for Keflex and clindamycin. The wound was still not improving after 2 days so she saw Dr. Montilla who added ciprofloxacin. Wound continued to get worse despite antibiotics and cleaning the wound with Hibiclens. Her Labs in the ED were within normal limits, Vital signs stable, no concerns for sepsis. She was started on vancomycin and cefepime and admitted for further management. Hospital Course: Patient admitted to the medical floor and treated with IV vancomycin and cefepime, leg raising and pain medications. Her right lower extremity erythema and swelling significantly improved with treatment. Patient was afebrile. Blood culture yielded no growth. Lower extremity cellulitis has almost resolved. Patient is discharged with doxycycline and informed to continue the Keflex. She will follow with Dr. Montilla within 1 to 2 weeks. Vital Signs/Physical Exam: Temp Pulse Resp BP Pulse Ox 97.2 F 80 18 119/62 97 11/18/22 08:00 11/18/22 08:00 11/18/22 08:00 11/18/22 08:00 11/18/22 08:00 General: Alert, In no apparent distress, Oriented x3 HEENT: Mucous membr. moist/pink Neck: Supple, JVD not distended Respiratory: Clear to auscultation bilaterally, Normal air movement Cardiovascular: No edema, Regular rate/rhythm, Normal S1 S2 Gastrointestinal: Normal bowel sounds, Soft and benign, Non-distended Musculoskeletal: No swelling Integumentary: Other (Abrasion on right calvillo) Neurological: Normal strength at 5/5 x4 extr Laboratory Data at Discharge: WBC 6.90 K/uL (4.3-10.9) 11/17/22 04:05 Hgb 11.5 g/dL (12.0-15.0) L 11/17/22 04:05 Hct 34.8 % (36.0-45.0) L 11/17/22 04:05 Plt Count 141 K/uL (152-406) L 11/17/22 04:05 Sodium 143 mmol/L (136-145) 11/18/22 04:06 Potassium 3.8 mmol/L (3.5-5.1) 11/18/22 04:06 BUN 18 mg/dL (7-18) 11/18/22 04:06 Creatinine 0.72 mg/dL (0.55-1.02) 11/18/22 04:06 Glucose 105 mg/dL (74-106) 11/18/22 04:06 Magnesium 2.1 mg/dL (1.6-2.4) 11/16/22 21:25 Triglycerides 69 mg/dL (<150) 11/17/22 04:05 Cholesterol 99 mg/dL (<200) 11/17/22 04:05 HDL Cholesterol 43 mg/dL (40-60) 11/17/22 04:05 Cholesterol/HDL Ratio 2.30 11/17/22 04:05 Home Medications: Atorvastatin Calcium 20 mg PO BEDTIME 11/17/22 Duloxetine HCl 90 mg PO DAILY 11/17/22 Insulin Degludec [Tresiba] 50 unit SQ BEDTIME 11/17/22 Levothyroxine [Synthroid*] 88 mcg PO [id number] 11/17/22 Losartan Potassium 50 mg PO DAILY 11/17/22 Pioglitazone HCl 30 mg PO DAILY 11/17/22 Doxycycline Monohydrate 100 mg PO BID #14 cap 11/18/22 New Medications: Doxycycline Monohydrate 100 mg PO BID #14 cap Physician Discharge Instructions: Keep your right leg elevated above your hip level while seated or in lying po sition. Diet: ADA Activity: Ad eloina Followup: Berhane Montilla MD [Primary Care Provider] - 1 Week Time spent managing pt's care (in minutes): 33
--- NOTE | 2022-11-20 13:15 | EKG ---
Test Date: 2022-11-16 Test Time: 21:22:30 Structural Designer: TY MEASUREMENT RESULTS: Intervals: Rate: 83 TN: 150 QRSD: 76 QT: 380 QTc: 446 [place]: P: 67 TN: 150 QRS: 24 T: 45 INTERPRETIVE STATEMENTS: Normal sinus rhythm Normal ECG Compared to ECG 05/18/2012 21:34:23 No significant changes Electronically Signed On 11-20-22 13:08:44 CDT by Bryan Celis
== END 2022-11-18 09:57 | disposition home or self-care (01) | DRG 603 ==
LOC: ER 20:02 → ERHOLD 23:43 → 4TH 11-17 00:11 → OBSVTOIN 11-17 13:39
PROVIDERS: ADMIT Internal Medicine; ATTEND Internal Medicine
DX: L03.115 Cellulitis of right lower limb (principal); I10 Essential (primary) hypertension; E03.9 Hypothyroidism, unspecified; E11.65 Type 2 diabetes mellitus with hyperglycemia; J45.909 Unspecified asthma, uncomplicated; Z88.0 Allergy status to penicillin; Z88.1 Allergy status to other antibiotic agents; Z88.5 Allergy status to narcotic agent; Z79.4 Long term (current) use of insulin; Z90.49 Acquired absence of other specified parts of digestive tract; Z20.822 Contact with and (suspected) exposure to COVID-19
CPT/HCPCS: 36415; 71045; 80048; 80061; 80202; 81001; 82947; 83036; 83605; 83735; 85025; 86140; 87040; 87811; 93005; 93971; 96365; 96366; 96375; 99285; G0378; J0692; J1815; J7040; J7050

== ENCOUNTER 2024-04-16 18:10 | Inpatient (IN) | payer OTHER ==
--- NOTE | 2024-04-16 18:59 | RAD REPORT ---
EXAM DESCRIPTION: RAD - Chest Single View - 04/16/2024 6:49 pm CLINICAL HISTORY: Abdominal distention;Pain COMPARISON: Chest Single View dated 11/16/2022; CHEST PA AND LAT 2 VIEW dated 11/01/2015; CHEST SINGLE VIEW dated 05/18/2012; CHEST PA AND LAT 2 VIEW dated 11/10/2010 FINDINGS: Lines: None. Lungs: Mild nonspecific prominence of the pulmonary interstitium. Pleural: No significant pleural effusions or pneumothorax. Cardiac: Similar mild cardiomegaly . Mediastinum: Within normal limits. Bones: No acute fractures. Other: None IMPRESSION: Mild prominence of the pulmonary interstitium is nonspecific. Mild pulmonary edema possi ble but this may also be related more so to portable radiographic technique.
[2024-04-16 20:13] LABS: Absolute Lymphocytes (CBC) 0.9 K/uL (0.7-4.9); Absolute Neutrophil 6.5 K/uL (1.8-8.0); Basophils % 0.5 % (0-1.3); Hematocrit 41.1 % (36.0-45.0); Hemoglobin 13.7 g/dL (12.0-15.0); Lymphocytes % 11.1 % (15.3-44.8); MCH 32.1 pg (27.0-35.0); MCHC 33.2 g/dL (32.0-36.0); MCV 96.7 fL (80-100); MPV 9.5 fL (7.6-11.3); Monocytes % 6.1 % (3.3-12.3); Neutrophils % 81.3 % (41.7-73.7); Nucleated Red Blood Cells % 0.2 % (0-0); Platelets 156 thou/uL (152-406); RBC Red Blood Cell Count 4.25 M/uL (3.86-4.86); Red Cell Distribution Width 12.8 % (12.1-15.2)
[2024-04-16 20:14] LABS: Absolute Eosinophils 0.1 K/uL (0-0.5); Absolute Monocytes 0.5 K/uL (0.1-1.3)
[2024-04-16 20:30] LABS: PT Prothrombin Time 12.8 SECONDS (9.4-12.5); Protime INR 1.15
[2024-04-16] MEDS ORDERED: ONDANSETRON 4 MG/2 ML VIAL ONE (20:34)
[2024-04-16] MEDS ORDERED: NA CHLORIDE 0.9% 1,000 ML ONE ×2 (20:34→23:54)
[2024-04-16] MEDS ORDERED: FAMOTIDINE 20 MG/2 ML VIAL IV ONE (20:34)
[2024-04-16] MEDS ORDERED: FENTANYL CITR 100 MCG/2 ML ONE ×2 (20:34→23:54)
[2024-04-16 21:04] LABS: ALT/SGPT 23 U/L (13-56); Albumin 3.6 g/dL (3.4-5.0); Alkaline Phosphatase 96 U/L (45-117); BUN Blood Urea Nitrogen 14 mg/dL (7-18); Bicarbonate 26 mEq/L (21-32); Bilirubin Direct 0.3 mg/dL (0-0.2); Bilirubin Indirect, Calculated 0.9 mg/dL (0.2-0.8); Bilirubin Total 1.2 mg/dL (0.2-1.0); Globulin 3.6 g/dL (2.3-3.5); Glomerular Filtration Rate 100 ml/min (=/>90); Glucose Level 105 mg/dL (74-106); HDL Cholesterol 53 mg/dL (40-60); LDL Cholesterol, Calculated 45 mg/dL (<130); LDL Cholesterol,Calc NonReport 45; Lipase 36 U/L (13-75); NT PRO-BNP 251 pg/mL (<125); Protein, Total 7.2 g/dL (6.4-8.2); Troponin High Sensitivity < 3.0 pg/mL (<58.9)
--- NOTE | 2024-04-16 21:17 | EDPHYS ---
Physician Documentation [facility] Name: Xenia Pittman Age: 48 yrs Sex: Female : 1975 Arrival Date: 04/16/2024 Time: 18:10 Bed 19 Private MD: ED Physician Serge Mccall HPI: 04/16 21:08 This 48 yrs old Female presents to ER via Ambulatory with complaints of andrez Abdominal Pain, Fever, Nausea. 21:08 The patient reports fever, that was measured at 100.1 degrees Fahrenheit. Onset: The andrez symptoms/episode began/occurred 1 day(s) ago. Modifying factors: there are no obvious modifying factors. Associated signs and symptoms: Pertinent positives: abdominal pain. Severity of symptoms: At their worst the symptoms were mild in the emergency department the symptoms are unchanged. The patient has experienced similar episodes in the past, multiple times. Historical: - Allergies: 18:35 Codeine; cm10 18:35 Levofloxacin; cm10 18:35 PENICILLINS; cm10 18:35 Sulfa (Sulfonamide Antibiotics); cm10 - PMHx: 18:35 Asthma; Diabetes - NIDDM; H Pylori; Hypertension; Hypothyroidism; Pancreatitis; cm10 - PSHx: 18:35 section; Cholecystectomy; cm10 - Immunization history:: Adult Immunizations up to date. - Infectious Disease History:: Denies. - Social history:: Smoking status: Patient denies any tobacco usage or history of. ROS: 21:11 Eyes: Negative for injury, pain, redness, and discharge, ENT: Negative for injury, andrez pain, and discharge, Neck: Negative for injury, pain, and swelling, Cardiovascular: Negative for chest pain, palpitations, and edema, Respiratory: Negative for shortness of breath, cough, wheezing, and pleuritic chest pain, Back: Negative for injury and pain, : Negative for injury, bleeding, discharge, and swelling, MS/Extremity: Negative for injury and deformity, Skin: Negative for injury, rash, and discoloration, Neuro: Negative for headache, weakness, numbness, tingling, and seizure, Psych: Negative for depression, anxiety, suicide ideation, homicidal ideation, and hallucinations, Allergy/Immunology: Negative for hives, rash, and allergies, Endocrine: Negative for neck swelling, polydipsia, polyuria, polyphagia, and marked weight changes, Hematologic/Lymphatic: Negative for swollen nodes, abnormal bleeding, and unusual bruising, 21:11 Constitutional: Positive for fever, 21:11 Abdomen/GI: Positive for abdominal pain, nausea and vomiting, abdominal cramps, abdominal distension, Exam: 21:11 Head/Face: Normocephalic, atraumatic. Eyes: Pupils equal round and reactive to light, andrez extra-ocular motions intact. Lids and lashes normal. Conjunctiva and sclera are non-icteric and not injected. Cornea within normal limits. Periorbital areas with no swelling, redness, or edema. ENT: Nares patent. No nasal discharge, no septal abnormalities noted. Tympanic membranes are normal and external auditory canals are clear. Oropharynx with no redness, swelling, or masses, exudates, or evidence of obstruction, uvula midline. Mucous membranes moist. Neck: Trachea midline, no thyromegaly or masses palpated, and no cervical lymphadenopathy. Supple, full range of motion without nuchal rigidity, or vertebral point tenderness. No Meningismus. Chest/axilla: Normal chest wall appearance and motion. Nontender with no deformity. No lesions are appreciated. Cardiovascular: Regular rate and rhythm with a normal S1 and S2. No gallops, murmurs, or rubs. Normal PMI, no JVD. No pulse deficits. Respiratory: Lungs have equal breath sounds bilaterally, clear to auscultation and percussion. No rales, rhonchi or wheezes noted. No increased work of breathing, no retractions or nasal flaring. Back: No spinal tenderness. No costovertebral tenderness. Full range of motion. Skin: Warm, dry with normal turgor. Normal color with no rashes, no lesions, and no evidence of cellulitis. MS/ Extremity: Pulses equal, no cyanosis. Neurovascular intact. Full, normal range of motion. Neuro: Awake and alert, GCS 15, oriented to person, place, time, and situation. Cranial nerves II-XII grossly intact. Motor strength 5/5 in all extremities. Sensory grossly intact. Cerebellar exam normal. Normal gait. Psych: Awake, alert, with orientation to person, place and time. Behavior, mood, and affect are within normal limits. 21:11 Constitutional: The patient appears well developed, febrile, 21:11 ECG was reviewed by the Attending Physician. 21:11 Abdomen/GI: Inspection: distension, that is mild, Bowel sounds: normal, Palpation: mild abdominal tenderness, in the epigastric area, right upper quadrant and left upper quadrant, Liver: no appreciated palpable abnormalities, Hernia: not appreciated, Vital Signs: 18:34 BP 137 / 82; Pulse 99; Resp 18; Temp 100.1(O); Pulse Ox 100% on R/A; Weight 124.74 kg; cm10 Height 5 ft. 4 in. ; Pain 7/10; 20:47 BP 124 / 66; Pulse 83; Resp 12; Pulse Ox 95% on 2 lpm NC; Pain 10/10; tm6 21:39 BP 136 / 72; Pulse 84; Pulse Ox 97% on R/A; tm6 18:34 Body Mass Index 47.20 (124.74 kg, 162.56 cm) cm10 18:34 Pain Scale: Adult cm10 20:47 Pain Scale: Adult tm6 MDM: 18:24 Patient medically screened. [facility] 21:13 Differential diagnosis: Nonspecific abd pain, gastritis, pancreatitis, appendicitis, andrez diverticulitis, viral gastroenteritis, gastroenteritis, viral Infection, bacterial infection, URI, bronchitis, pneumonia UTI, gastroenteritis, appendicitis, bowel obstruction, diverticulitis, gastritis, gastroesophageal reflux disease, non-specific abd pain, pancreatitis, Peptic Ulcer Disease, Pyelonephritis, Ureterolithiasis, urinary tract infection. Data reviewed: vital signs, nurses notes, lab test result(s), EKG, radiologic studies, CT scan, plain films. Consideration of Admission/Observation Escalation of care including admission/observation considered. I considered the following discharge prescriptions or medication management in the emergency department Medications were administered in the Emergency Department. See MAR. Independent interpretation of the following test(s) in the Emergency Department EKG: See my EKG interpretation above. Test considered but Not performed: Ultrasound no abd usg. Care significantly affected by the following chronic conditions: Diabetes, Hypertension, Obesity, pancreatitis,hypothyroid, asthma. 04/16 18:25 Order name: Basic Metabolic Panel [facility] 04/16 18:25 Order name: CBC with Diff; Complete Time: 21:[address] [facility] 04/16 18:25 Order name: LFT's [facility] 04/16 18:25 Order name: Magnesium [facility] 04/16 18:25 Order name: NT PRO-BNP [facility] 04/16 18:25 Order name: PT-INR; Complete Time: 21:[address] [facility] 04/16 18:25 Order name: Troponin HS [facility] 04/16 18:25 Order name: Lipid Profile [facility] 04/16 18:25 Order name: Lipase [facility] 04/16 21:28 Order name: Basic Metabolic Panel EDMS 04/16 21:28 Order name: Basic Metabolic Panel EDMS 04/16 21:28 Order name: CBC with Automated Diff EDMS 04/16 21:28 Order name: CBC with Automated Diff EDMS 04/16 21:28 Order name: Lipase EDMS 04/16 21:28 Order name: Lipase EDMS 04/16 21:28 Order name: Liver (Hepatic) Function EDMS 04/16 21:28 Order name: Liver (Hepatic) Function EDMS 08 05:21 Order name: CBC with Automated Diff EDMS 04/17 05:30 Order name: Basic Metabolic Panel EDMS 04/17 05:30 Order name: Liver (Hepatic) Function EDMS 04/17 05:30 Order name: Lipase EDMS 04/17 07:34 Order name: Glucose, Ancillary Testing EDMS 04/17 12:20 Order name: Glucose, Ancillary Testing EDMS 04/16 18:25 Order name: XRAY Chest (1 view); Complete Time: 21:[address] [facility] 04/16 18:26 Order name: CT Abd/Pelvis - IV Contrast Only; Complete Time: 21:[address] [facility] 04/16 18:25 Order name: Cardiac monitoring; Complete Time: 20:[address] [facility] 04/16 18:25 Order name: EKG - Nurse/Tech; Complete Time: 20:[address] [facility] 04/16 18:25 Order name: IV Saline Lock; Complete Time: 20:[address] [facility] 04/16 18:25 Order name: Labs collected and sent; Complete Time: 20:[address] [facility] 04/16 18:25 Order name: O2 Per Protocol; Complete Time: 20:[address] [facility] 04/16 18:25 Order name: O2 Sat Monitoring; Complete Time: 20:[address] [facility] EC:11 Rate is 95 beats/min. Rhythm is regular. QRS [place] is Normal. [place] interval is normal. QRS andrez interval is normal. QT interval is normal. No Q waves. T waves are Normal. No ST changes noted. Clinical impression: Normal ECG and No evidence of ischemia. Interpreted by me. Reviewed by me. Administered Medications: 20:44 Drug: Famotidine IVP 20 mg IVP once; dilute with 10 mL 0.9% NaCl; give over 2 minutes tm6 Route: IVP; Site: right antecubital; 20:45 Drug: NS 0.9% IV 1000 ml IV at 1 bolus Per protocol; 1000 mL bolus Route: IV; Rate: 1 tm6 bolus; Site: right antecubital; 20:45 Drug: fentaNYL (PF) IVP 50 mcg IVP once Route: IVP; Site: right antecubital; tm6 20:45 Drug: Ondansetron IVP 4 mg IVP once; over 2 minutes Route: IVP; Site: right antecubital;tm6 21:30 Drug: Acetaminophen PO 1000 mg PO once Route: PO; tm6 Disposition Summary: 04/16/24 21:16 Hospitalization Ordered Notes: Hospitalization Status: Observation andrez Provider: Berhane Montilla cha Condition: Fair andrez Problem: new andrez Symptoms: have improved andrez Bed/Room Type: Standard andrez Location: Telemetry/MedSurg (observation)(04/17/24 12:06) bd Room Assignment: 231(04/17/24 12:06) bd Diagnosis - Epigastric abdominal tenderness andrez - Fever, unspecified andrez - Vomiting andrez - Obesity, unspecified andrez - Other viral enteritis andrez Forms: - Medication Reconciliation Form andrez - SBAR form andrez - Leadership Thank You Letter andrez Signatures: Dispatcher [employer] EDMS Pita Gomez Corey, MD MD cha Bryson, James, ESTRADA RN [id number] Zoie Canales, RN RN cm10 Mamadou Kumar RN RN tm6 Corrections: (The following items were deleted from the chart) 18:26 18:26 BASIC METABOLIC PANEL+C.LAB.BRZ ordered. EDMS EDMS 18:26 18:26 CBC+H.LAB.BRZ ordered. EDMS EDMS 18:26 18:26 HEPATIC FUNCTION+C.LAB.BRZ ordered. EDMS EDMS 18:26 18:26 MAGNESIUM+C.LAB.BRZ ordered. EDMS EDMS 18:26 18:26 PROBNP+C.LAB.BRZ ordered. EDMS EDMS 18:26 18:26 PROTIME (+INR)+COAG.LAB.BRZ ordered. EDMS EDMS 18:26 18:26 Troponin High Sensitivity+C.LAB.BRZ ordered. EDMS EDMS 18:26 18:26 LIPID PROFILE+C.LAB.BRZ ordered. EDMS EDMS 18:26 18:26 LIPASE+C.LAB.BRZ ordered. EDMS EDMS 18:26 18:26 Chest Single View+RAD.RAD.BRZ ordered. EDMS EDMS 18:27 18:27 Abdomen Pelvis W Con+CT.RAD.BRZ ordered. EDMS EDMS 22:43 21:16 Telemetry/MedSurg (Inpatient) [facility] jb4 22:43 21:16 andrez jb4 04/17 12:06 04/16 22:43 [facility] ER HOLD jb4 bd 04/17 12:06 04/16 22:43 ERHOLD- jb4 bd
--- NOTE | 2024-04-16 21:17 | ER ---
Nurse's Notes [facility] Name: Xenia Pittman Age: 48 yrs Sex: Female : 1975 Arrival Date: 04/16/2024 Time: 18:10 Bed 19 Private MD: Diagnosis: Epigastric abdominal tenderness;Fever, unspecified;Vomiting;Obesity, unspecified;Other viral enteritis Presentation: 04/16 18:34 Chief complaint: Patient states: Upper abdominal pain onset yesterday. Pt also reports, cm10 gas, bloating, nausea and fever. Pt states PCP sent her to the ER for concerns of pancreatitis. Coronavirus screen: Client denies travel out of the [place] in the last 14 days. At this time, the client does not indicate any symptoms associated with coronavirus-19. Ebola Screen: Patient denies travel to an Ebola-affected area in the 21 days before illness onset. No symptoms or risks identified at this time. Initial Sepsis Screen: Does the patient meet any 2 criteria? HR > 90 bpm. Does the patient have a suspected source of infection? No. Patient's initial sepsis screen is negative. Risk Assessment: Do you want to hurt yourself or someone else? Patient reports no desire to harm self or others. Onset of symptoms was April 16, 2024. 18:34 Method Of Arrival: Ambulatory cm10 18:34 Acuity: GEOVANNY 3 cm10 Triage Assessment: 18:36 General: Appears in no apparent distress. comfortable, Behavior is calm, cooperative. cm10 Respiratory: No deficits noted. Airway is patent Respiratory effort is even, unlabored, Respiratory pattern is regular, symmetrical. Historical: - Allergies: 18:35 Codeine; cm10 18:35 Levofloxacin; cm10 18:35 PENICILLINS; cm10 18:35 Sulfa (Sulfonamide Antibiotics); cm10 - PMHx: 18:35 Asthma; Diabetes - NIDDM; H Pylori; Hypertension; Hypothyroidism; Pancreatitis; cm10 - PSHx: 18:35 section; Cholecystectomy; cm10 - Immunization history:: Adult Immunizations up to date. - Infectious Disease History:: Denies. - Social history:: Smoking status: Patient denies any tobacco usage or history of. Screenin:45 [facility] ED Fall Risk Assessment (Adult) History of falling in the last 3 months, tm6 including since admission No falls in past 3 months (0 pts) Confusion or Disorientation No (0 pts) Intoxicated or Sedated No (0 pts) Impaired Gait No (0 pts) Mobility Assist Device Used No (0 pt) Altered Elimination No (0 pt) Score/Fall Risk Level 0 - 2 = Low Risk Oriented to surroundings, Maintained a safe environment, Educated pt \T\ family on fall prevention, incl call for assistance when getting out of bed. Abuse screen: Denies threats or abuse. Denies injuries from another. Nutritional screening: No deficits noted. Tuberculosis screening: No symptoms or risk factors identified. Assessment: 20:45 General: Appears uncomfortable, Behavior is calm, cooperative. Pain: Complains of pain tm6 in left upper quadrant Pain does not radiate. Pain currently is 10 out of 10 on a pain scale. Quality of pain is described as sharp, stabbing, Is continuous. Neuro: Level of Consciousness is awake, alert, obeys commands, Oriented to person, place, time, situation. Cardiovascular: Patient's skin is warm and dry. Respiratory: Airway is patent Respiratory effort is even, unlabored, Respiratory pattern is regular, symmetrical. GI: Abdomen is round Bowel sounds present X 4 quads. Abd is soft Abdomen is tender to palpation in left upper quadrant Reports upper abdominal pain, nausea. : No signs and/or symptoms were reported regarding the genitourinary system. EENT: No signs and/or symptoms were reported regarding the EENT system. Derm: No signs and/or symptoms reported regarding the dermatologic system. Musculoskeletal: No signs and/or symptoms reported regarding the musculoskeletal system. Vital Signs: 18:34 BP 137 / 82; Pulse 99; Resp 18; Temp 100.1(O); Pulse Ox 100% on R/A; Weight 124.74 kg; cm10 Height 5 ft. 4 in. ; Pain 7/10; 20:47 BP 124 / 66; Pulse 83; Resp 12; Pulse Ox 95% on 2 lpm NC; Pain 10/10; tm6 21:39 BP 136 / 72; Pulse 84; Pulse Ox 97% on R/A; tm6 18:34 Body Mass Index 47.20 (124.74 kg, 162.56 cm) cm10 18:34 Pain Scale: Adult cm10 20:47 Pain Scale: Adult tm6 ED Course: 18:13 Patient arrived in ED. mg5 18:24 Serge Mccall MD is Attending Physician. andrez 18:35 Triage completed. cm10 18:36 Arm band placed on Patient placed in waiting room. cm10 18:50 XRAY Chest (1 view) In Process Unspecified. EDMS 20:23 Inserted saline lock: 20 gauge in right antecubital area, using aseptic technique. oe Blood collected. Flushed with 10 mL NS. 20:23 EKG done, by ED staff, reviewed by Serge Mccall MD. oe 20:31 Mamadou Kumar, RN is Primary Nurse. tm6 20:45 Patient has correct armband on for positive identification. Bed in low position. Call tm6 light in reach. Side rails up X 1. Provided Education on: use of call castaneda. Client placed on continuous cardiac and pulse oximetry monitoring. NIBP monitoring applied. environmental monitoring technician on. Pulse ox on. NIBP on. Door closed. Noise minimized. Lights dimmed. Warm blanket given. Pillow given. 21:15 Amanda Montilla MD is Hospitalizing Provider. andrez 21:15 Hospitalizing Provider role handed off by Amanda Montilla MD andrez 21:15 Berhane Montilla MD is Hospitalizing Provider. andrez 21:21 CT Abd/Pelvis - IV Contrast Only In Process Unspecified. EDMS 22:13 Attending Physician role handed off by Serge Mccall MD tm6 22:13 Primary Nurse role handed off by Mamadou Kumar, ESTRADA tm6 22:13 Mamadou Kumar, ESTRADA is Primary Nurse. tm6 22:19 Serge Mccall MD is Attending Physician. jb4 04/17 00:15 No provider procedures requiring assistance completed. Patient admitted, IV remains in tm6 place. Administered Medications: 04/16 20:44 Drug: Famotidine IVP 20 mg IVP once; dilute with 10 mL 0.9% NaCl; give over 2 minutes tm6 Route: IVP; Site: right antecubital; 20:45 Drug: NS 0.9% IV 1000 ml IV at 1 bolus Per protocol; 1000 mL bolus Route: IV; Rate: 1 tm6 bolus; Site: right antecubital; 20:45 Drug: fentaNYL (PF) IVP 50 mcg IVP once Route: IVP; Site: right antecubital; tm6 20:45 Drug: Ondansetron IVP 4 mg IVP once; over 2 minutes Route: IVP; Site: right antecubital;tm6 21:30 Drug: Acetaminophen PO 1000 mg PO once Route: PO; tm6 Medication: 20:45 VIS not applicable for this client. tm6 Outcome: 21:16 Decision to Hospitalize by Provider. andrez 04/17 00:15 Admitted to ER Hold. Please see [facility] for further documentation. tm6 Condition: stable Instructed on the need for admit, 13:05 Patient left the ED. db Signatures: Dispatcher [employer] EDMS Serge Mccall MD MD cha Bryson, James, RN RN jb4 Manish Garcia Danielle RN RN db Zoie Canales, RN RN cm10 Lara Ritchie mg5 Mamadou Kumar, RN RN tm6 Corrections: (The following items were deleted from the chart) 00:15 08 22:11 Patient left the ED. jb4 tm6
[2024-04-16] MEDS ORDERED: ONDANSETRON 4 MG/2 ML VIAL IV PRN (21:22)
[2024-04-16] MEDS ORDERED: ACETAMINOPHEN 325 MG TABLET PO PRN (21:22)
[2024-04-16] MEDS ORDERED: ACETAMINOPHEN 500 MG TAB ONE (21:26)
[2024-04-16 21:27] LABS: Anion Gap 9.7 mEq/L (5.0-15.0); Potassium 3.7 mEq/L (3.5-5.1); Sodium Level 136 mEq/L (136-145)
--- NOTE | 2024-04-16 21:33 | RAD REPORT ---
EXAM DESCRIPTION: CTAbdomen Pelvis W Contrast - 04/16/2024 9:19 pm CLINICAL HISTORY: ABD PAIN COMPARISON: Abdomen Pelvis W Contrast dated 12/28/2022; Abdomen Pelvis W Contrast dated 04/05/2019 ; Abdomen Pelvis W Contrast dated 12/09/2018; Abdomen Pelvis W Contrast dated 11/12/2017 TECHNIQUE: CT of the abdomen and pelvis was performed with IV contrast. All CT scans are performed using dose optimization technique as appropriate and may include automated exposure control or mA/KV adjustment according to patient size. FINDINGS: Lower chest: No acute abnormality. Liver: No acute abnormality or suspicious lesions. Biliary: Cholecystectomy. Stomach: No significant focal abnormality. Duodenum: No significant focal abnormality. Pancreas: No significant abnormality. Spleen: No significant abnormality. Adrenal: No suspicious lesions. Kidney/ureter: No hydronephrosis. No renal calculi. Retroperitoneum: No retroperitoneal adenopathy. Vascular: No aneurysm. Bowel: Scattered loops of mildly distended and fluid-filled small bowel noted.. Peritoneum: No ascites or free air. Small fat containing umbilical hernia. Bladder: Grossly unremarkable. Reproductive: The IUD is within the endometrial canal but low lying within the lower uterine segment. Bones: No acute fracture. Other: n/a IMPRESSION: 1. Distended small bowel segments containing fluid with mild mesenteric hyperemia likely reflecting a mild enteritis. 2. Low-lying IUD within the lower uterine segment. This may need to be replaced. Suggest referral to gynecology.
[2024-04-16 21:35] LABS: AST/SGOT 25 U/L (15-37)
[2024-04-16] MEDS: NA CHLORIDE 0.9% 1,000 ML IV SCH (22:00)
[2024-04-16] MEDS ORDERED: METRONIDAZOLE 500mg IVPB 500 MG/100 ML BAG IV ONE (23:54)
[2024-04-17] MEDS: FENTANYL CITR 100 MCG/2 ML IV SCH
[2024-04-17] MEDS: NA CHLORIDE 0.9% 1,000 ML IV SCH ×2 (05:00→07:57)
[2024-04-17 05:18] LABS: Absolute Eosinophils 0.1 K/uL (0-0.5); Absolute Lymphocytes (CBC) 1.6 K/uL (0.7-4.9); Absolute Monocytes 0.5 K/uL (0.1-1.3); Absolute Neutrophil 4.6 K/uL (1.8-8.0); Basophils % 0.2 % (0-1.3); Eosinophils % 1.5 % (0-4.4); Hematocrit 37.9 % (36.0-45.0); Hemoglobin 12.6 g/dL (12.0-15.0); Lymphocytes % 23.7 % (15.3-44.8); MCH 32.5 pg (27.0-35.0); MCHC 33.2 g/dL (32.0-36.0); MCV 97.9 fL (80-100); MPV 10.2 fL (7.6-11.3); Monocytes % 7.7 % (3.3-12.3); Neutrophils % 66.9 % (41.7-73.7); Platelets 145 thou/uL (152-406); RBC Red Blood Cell Count 3.87 M/uL (3.86-4.86); Red Cell Distribution Width 12.8 % (12.1-15.2)
[2024-04-17 05:26] LABS: Albumin 2.9 g/dL (3.4-5.0); Albumin/Globulin Ratio 0.9 (1.1-1.8); Anion Gap 7.5 mEq/L (5.0-15.0); Bilirubin Direct 0.3 mg/dL (0-0.2); Bilirubin Indirect, Calculated 0.8 mg/dL (0.2-0.8); Bilirubin Total 1.1 mg/dL (0.2-1.0); Globulin 3.1 g/dL (2.3-3.5); Potassium 3.5 mEq/L (3.5-5.1)
[2024-04-17] MEDS: INSULIN REGULAR (HUMAN) 100 UNIT/ML SQ SCH (07:30)
[2024-04-17] MEDS ORDERED: DIPHENHYDRAMINE 25 MG TAB/CAP PO PRN (08:02)
[2024-04-17] MEDS ORDERED: FAMOTIDINE 20 MG/2 ML VIAL IV ONE (08:08)
[2024-04-17] MEDS ORDERED: METRONIDAZOLE 500mg IVPB 500 MG/100 ML BAG IV ONE (08:09)
[2024-04-17] MEDS ORDERED: ENOXAPARIN 40 MG/0.4 ML SQ ONE (08:09)
[2024-04-17] MEDS ORDERED: CIPROFLOXACIN 400mg IV 400 MG/200 ML BAG IV ONE (08:09)
[2024-04-17] MEDS: METRONIDAZOLE 500mg IVPB 500 MG/100 ML BAG IV SCH ×2 (08:40)
[2024-04-17] MEDS: CIPROFLOXACIN 400mg IV 400 MG/200 ML BAG IV SCH (08:40)
[2024-04-17] MEDS: ENOXAPARIN 40 MG/0.4 ML SQ SCH (08:41)
[2024-04-17] MEDS: FAMOTIDINE 20 MG/2 ML VIAL IV SCH (08:41)
[2024-04-17] MEDS ORDERED: FAMOTIDINE 20 MG/2 ML VIAL IV SCH (09:00)
[2024-04-17] MEDS ORDERED: FENTANYL CITR 100 MCG/2 ML ONE (09:46)
[2024-04-17] MEDS: FENTANYL CITR 100 MCG/2 ML IV PRN (09:47)
[2024-04-17 12:29] VITALS: O2SAT 100
--- NOTE | 2024-04-17 13:06 | EKG ---
Test Date: 2024-04-16 Test Time: 20:14:02 Synthetic Chemist: MELISSA MEASUREMENT RESULTS: Intervals: Rate: 95 MO: 144 QRSD: 78 QT: 362 QTc: 454 [place]: P: 33 MO: 144 QRS: 50 T: 51 INTERPRETIVE STATEMENTS: Normal sinus rhythm Normal ECG Compared to ECG 11/16/2022 21:22:30 No significant changes Electronically Signed On 04-17-24 13:05:03 CDT by Bryan Celis
[2024-04-17] MEDS: ACETAMINOPHEN 325 MG TABLET PO PRN (20:43)
[2024-04-18] MEDS: NA CHLORIDE 0.9% 1,000 ML IV SCH (10:34)
--- NOTE | 2024-04-18 14:39 | PN ---
Date of Progress Note: 04/17/2024 Subjective: The patient was seen this morning for followup. No new complaints or problems reported by patient. She continues to have her abdominal pain and nausea. Objective: Vital Signs: Reviewed. Last temperature this morning, 98.1, pulse 78, respiratory rate 14, blood pressure 126/64, oxygen saturation 98% on room air. HEENT: Unremarkable. Lungs: Clear to auscultation. Heart: Sounds normal. Abdomen: Soft. Bowel sounds normal. No guarding, rigidity, distention. The patient does have mode rate amount of tenderness in the epigastric region, slightly better than yesterday. No rebound tende rness. Extremities: No leg edema. Laboratory Data: Sodium 140, potassium 3.5, chloride 109, bicarb 27, BUN 11, creatinine 0.60, glucos e 106. Liver function tests unremarkable. Lipase 25. White count 6.8, hemoglobin 12.6, platelets 1 45. Impression: 1.Acute gastroenteritis. 2.Type 2 diabetes mellitus. 3.Hypothyroidism. 4.Hypertension. 5.Hyperlipidemia. 6.Mild persistent asthma. Plan: We will go ahead and continue current medication. Continue IV fluid and antibiotics per order . Continue DVT prophylaxis per order. We will continue to manage diabetes with a sliding scale insu lam, and we will continue Cipro and metronidazole. Start the patient on clear liquid diet. I will see her to [facility] for followup. FREDERICK/MODL Voice ID: [id number] Report ID: [id number]
--- NOTE | 2024-04-18 17:43 | PN ---
Date of Progress Note: 04/18/2024 Subjective: The patient was seen this morning for followup she was lying in bed not in distress. Re ported that her abdominal pain has gotten worse this morning after she had a bowel movement and after she had some clear liquid diet this morning. The patient denies having any diarrhea. Reports her s tool was soft. No blood in stool. Has nausea, but no vomiting. Objective: Vital signs: Reviewed. She remains afebrile. HEENT: Unremarkable. Lungs: Clear to auscultation. Heart: Sounds normal. Abdomen: Soft. Bowel sounds normal. No guarding, rigidity, distention. She has moderate tendernes s in epigastric region. No rebound tenderness. Extremities: No leg edema. Impression: 1.Acute gastroenteritis. 2.Hypothyroidism. 3.Type 2 diabetes mellitus. 4.Hypertension. 5.Hyperlipidemia. 6.Mild persistent asthma. Plan: We will go ahead and continue current IV fluid antibiotic. Reduce IV fluid to 50 cc/hour. Ad solis diet to full liquid diet and I have also requested upper GI series to be done today and we will consult Dr. Milton from General Surgery and I have called and discussed details with him. Since the patient has not improved as expected, I have ordered upper GI series and general surgical consultatio n and all these details were discussed with her as well. I will see her tomorrow for followup. FREDERICK/MODL Voice ID: [id number] Report ID: [id number]
[2024-04-18] MEDS: ONDANSETRON 4 MG/2 ML VIAL IV PRN (20:58)
--- NOTE | 2024-04-18 22:53 | HP ---
Date of Admission: 04/17/2024 Chief Complaint: Abdominal pain, fever, nausea. History Of Present Illness: This is a 48-year-old very pleasant female patient who came into office today with complaints of epigastric abdominal pain that started as of yesterday evening, associated w ith low-grade fever and nausea. Denies any vomiting, diarrhea, or constipation. The patient says he r pain is constant and no aggravating or relieving factors. The patient did not have a good appetite with this pain and did not eat much in last 12-24 hours. After she was evaluated in office, she was asked to come to emergency room for further evaluation and details were discussed with ER physician and after patient was evaluated, details were discussed again with the ER physician and decision was made to admit her to the hospital. Allergies: LEVAQUIN CAUSING RASH OVER HER ABDOMINAL WALL AREA AND THIS HAPPENED AFTER HER GALLBLADDE R SURGERY AND PATIENT REPORTS THAT SHE HAS TAKEN CIPRO AND SHE IS ABLE TO TAKE IT WITHOUT ANY SIDE EF FECT. SHE IS ALSO ALLERGIC TO PENICILLIN, WHICH SHE REALLY DOES NOT KNOW THE DETAILS SHE SAYS TONY SIMON SHE WAS TOLD TO BE ALLERGIC TO PENICILLIN DURING HER CHILDHOOD. SHE IS ALSO LISTED ALLERGIC TO SULFA AND CODEINE CAUSES ITCHING, ADHESIVE TAPE CAUSING RASH. Medications: List reviewed. The patient is on albuterol inhaler 2 puffs 4 times a day as needed for shortness of breath, atorvastatin 20 mg daily, duloxetine 30 mg she takes 2 capsules daily, Breo inh aler 1 puff daily, levothyroxine 88 mcg daily, losartan 50 mg daily, montelukast 10 mg daily, pioglit azone daily, and insulin 30 units subcutaneous injection daily. Review of Systems: Constitutional: As mentioned above. GI: As mentioned above. All other systems reviewed are negative. Past Surgical History: Significant for cholecystectomy in 2012, , and carpal tunnel release . Family History: Father had coronary artery disease. Mother, hypertension and dementia. Social History: Negative for smoking, alcohol use. Past Medical History: Significant for thyroid nodule, hypothyroidism, type 2 diabetes mellitus, COVI D-19 infection on May 05, 2021, mild persistent asthma, hypertension, hyperlipidemia. Physical Examination: Vital Signs: When I saw her at office, blood pressure was 139/80, pulse 106, temperature 99 degrees Fahrenheit, respiratory rate 18. Weight 276.6 pounds, height 65 inches. General: Awake, alert, oriented, not in distress. HEENT: Head atraumatic, normocephalic. Conjunctivae nonerythematous. Sclerae white. Mouth, no thr ush or edema noted. Ears/Nose, no mass, lesion, discharge noted. Neck: Supple. No JVD, lymph nodes, bruit, thyromegaly noted. Lungs: Bilateral good equal air entry. Clear to auscultation. No rhonchi. No rales. Heart: Normal heart sounds, no murmur or gallop. Abdomen: The patient has significant tenderness in the epigastric region, otherwise abdomen is soft. Bowel sounds normal. No hepatosplenomegaly. No bruit. No distention. No rebound tenderness. Extremities: No leg edema. No calf tenderness. Skin: No rash, ulcer, cellulitis. Lymphatics: No lymph node enlargement in neck, supraclavicular, infraclavicular region. Neuro: No focal neurological deficit. Chest: Unremarkable. External Genitalia: Deferred. Rectal: Deferred. Laboratory Data: White count 8, hemoglobin 13.7, platelets 156. Sodium 136, potassium 3.7, chloride 104, bicarb 26, BUN 14, creatinine 0.73, glucose 105. Total bilirubin 1.2, direct bilirubin 0.3, T 25, ALT 23, alkaline phosphatase 96. Lipase total cholesterol, LDL 45, HDL 53. CAT sca n of the abdomen and pelvis done in emergency room shows evidence of dilated loops of small bowel wit h fluid consistent with enteropathy. There is no evidence of bowel obstruction. Impression: 1.Acute gastroenteritis. 2.Type 2 diabetes mellitus. 3.Hypertension. 4.Hyperlipidemia. 5.Mild persistent asthma. 6.Hypothyroidism. 7.Morbid obesity. Plan: We will go ahead and admit the patient to hospital for further evaluation and management of th is problem. We will start the patient on IV fluid and IV antibiotics per order. We will give Cipro and metronidazole. Pain medications and nausea medications will be given per order. We will use Heather enox for DVT prophylaxis. For hypertension, the patient takes her losartan. We will monitor blood p ressure and start that medication at appropriate time while in the hospital. For hyperlipidemia, she takes a statin therapy and we will restart statin therapy at appropriate time for diabetes, we will manage that with sliding scale insulin at this time. We will not give any long-acting insulin to sta rt with. We will repeat blood work tomorrow. Details and plan of treatment discussed with the patiprasanna nt. Total time spent today was 90 minutes including evaluation performed at office; communication with [facility] [place] emergency room provider on 2 different occasions, initially before the patient was evaluated in the ER and subsequently after all the test results came back; and performing today's evaluation and denilson montgomery for the hospital admission. FREDERICK/MODL Voice ID: [id number]
[2024-04-19 09:10] LABS: Absolute Eosinophils 0.1 K/uL (0-0.5); Absolute Lymphocytes (CBC) 1.7 K/uL (0.7-4.9); Absolute Monocytes 0.6 K/uL (0.1-1.3); Absolute Neutrophil 3.3 K/uL (1.8-8.0); Basophils % 0.4 % (0-1.3); Eosinophils % 2.5 % (0-4.4); Hematocrit 36.5 % (36.0-45.0); Lymphocytes % 28.9 % (15.3-44.8); MCH 32.3 pg (27.0-35.0); MPV 9.9 fL (7.6-11.3); Monocytes % 10.7 % (3.3-12.3); Neutrophils % 57.5 % (41.7-73.7); Platelets 132 thou/uL (152-406); RBC Red Blood Cell Count 3.73 M/uL (3.86-4.86); Red Cell Distribution Width 12.6 % (12.1-15.2)
[2024-04-19 09:21] LABS: Albumin 2.9 g/dL (3.4-5.0); Anion Gap 6.4 mEq/L (5.0-15.0); Bilirubin Total 0.6 mg/dL (0.2-1.0); Globulin 2.9 g/dL (2.3-3.5); Magnesium 1.8 mg/dL (1.6-2.4); Potassium 3.4 mEq/L (3.5-5.1); Protein, Total 5.8 g/dL (6.4-8.2)
--- NOTE | 2024-04-19 11:30 | CON ---
Date of Consultation: 04/18/2024 Reason For Consultation: Abdominal pain. History Of Present Illness: The patient is a 48-year-old female who presents with a 5-day history of abdominal pain associated with fever and nausea. She has had bowel movement. She is passing gas. She denies any unusual foods that she has eaten nor she has been around anybody who is sick recently. Her pain was relieved yesterday. However, it came back this morning when she went to the bathroom. She is anorexic. She had a CAT scan done initially in the ER, which revealed likely gastroenteriti s. She is being treated with fluids and IV antibiotics. She had an upper GI done yesterday, which w as reported to be negative. The patient denies any sore throat, runny nose, cough, headaches, dizzin ess, chest pain. Review of Systems: Otherwise unremarkable. Past Medical History: Hypothyroidism, type 2 diabetes, asthma, hypertension, hyperlipidemia. Past Surgical History: Cholecystectomy, , carpal tunnel surgery. Allergies: INCLUDE LEVAQUIN, QUESTIONABLY ALLERGIC TO PENICILLIN AND SULFA AND CODEINE. SHE HAS PRISCA EN CIPRO IN THE PAST WITHOUT ANY PROBLEMS. Medications: Reviewed. The patient does not smoke or drink alcohol. Family History: Significant for coronary artery disease, hypertension, and dementia. Physical Examination: Vital Signs: Stable. Blood pressure is slightly high. She is afebrile currently. General: She is awake, alert, oriented x3. Head and Neck: Cranial nerves 2 through 12 grossly within normal limits. No neck masses. No JVD. Throat clear. Neck: Supple. Chest: Clear. Heart: S1, S2. Abdomen: Soft, nondistended. Diffuse tenderness, but no rebound rigidity or guarding. No abdominal wall hernia appreciated. Extremities: Adequately perfused, nontender. Neuro: Nonfocal. Diagnostic Data: As per HPI. Laboratory Data: Reviewed. White count is normal. Platelets are 132. There is no left shift. INR is 1.15. Chemistry reviewed. Potassium is slightly low and being replaced. Albumin is 2.9. Assessment: A 48-year-old female with likely gastroenteritis, slow to improve. Recommendations: Continue IV fluids and IV antibiotics. We will get a small bowel series to better evaluate the anatomy of the small bowel and make further recommendation based on the results of that. She also on the CAT scan had an IUD, which was low-lying in the uterus and she was advised to follo w up with her D.O. regarding the patient does not have an acute surgical abdomen at this time. [facility] er, we will follow this patient closely. Plan of care discussed with Dr. Montilla and the patient and bhavana martínez. /MODEze Voice ID: [id number] Report ID: [id number]
--- NOTE | 2024-04-19 11:36 | RAD REPORT ---
EXAM DESCRIPTION: RAD - Upper GI Series Wo KUB - 04/18/2024 12:30 pm CLINICAL HISTORY: upper abd pain COMPARISON: Abdomen Pelvis W Contrast dated 04/16/2024 FINDINGS: An esophagram was performed and shows normal bolus formation and normal initiation of swal lowing. Primary peristalsis is normal with no intrinsic or extrinsic esophageal abnormalities. Unremarkable appearance of the stomach and proximal duodenum. Normal a egress of contrast from the st omach into the duodenum. Total fluoroscopy time: 1 minutes 1 seconds Number of images acquired: 11 IMPRESSION: Unremarkable upper GI series.
--- NOTE | 2024-04-19 15:39 | PN ---
Date of Progress Note: 04/19/2024 Subjective: The patient was seen this morning for followup. No new complaints, problems reported by her. She was still having abdominal pain mostly in the upper abdomen in the epigastric region and l eft upper quadrant. Her pain is more or less constant as she says but it does get worse from time to time. She had one episode of vomiting last night. Objective: Vital Signs: Reviewed. HEENT: Unremarkable. Lungs: Clear to auscultation. Heart: Sounds normal. Abdomen: Soft. Bowel sounds normal. No guarding, rigidity, distention. She does have tenderness i n epigastric and left upper quadrant. Extremities: No leg edema. Labs: Upper GI series done yesterday came back normal. Impression: 1.Abdominal pain, epigastric and upper abdominal pain. 2.Type 2 diabetes mellitus. Plan: We will go ahead and continue current antibiotic. The patient's upper GI series came back unr emarkable. Dr. Milton from General Surgery will see her today and I did discuss with him and he is go ing to order a small bowel series today. If that comes back unremarkable, I will consider adding dic yclomine thinking about possibility of irritable bowel syndrome. I have informed the patient that upon discharge, on outpatient basis she should get EGD done with her care taker. FREDERICK/MODL Voice ID: [id number] Report ID: [id number]
--- NOTE | 2024-04-19 15:41 | RAD REPORT ---
EXAM DESCRIPTION: RAD - Small Bowel Series - 04/19/2024 1:34 pm CLINICAL HISTORY: Abdominal pain/ FINDINGS: Contrast enters the colon by approximately 1 hour 30 minutes. The mucosal folds of the small bowel appear normal. No permanent filling defects, obstructing or constricting lesions are seen. The small bowel caliber is normal. IMPRESSION: Unremarkable small bowel series.
[2024-04-20 01:33] VITALS: BMI 47.1
[2024-04-20] MEDS: DICYCLOMINE HCL 10 MG CAP PO SCH (09:11)
[2024-04-20 09:15] VITALS: BP 147/80; TEMP 96.7
--- NOTE | 2024-04-20 10:48 | PN ---
Subjective: Patient feels better. Had a bowel movement, passing gas. Had some pain yesterday; benjamin jaspreet, it is much better, this morning. Small bowel series is negative. Objective: Vital Signs: Stable. She is afebrile. Abdomen: Benign, soft, nondistended, nontender. Positive bowel sounds. Assessment: Likely gastroenteritis, improving. Recommendations: The patient should remain on clear liquids, maybe another day and then slowly advan ce her diet. Discussed the case with Dr. Montilla. Patient will be discharged to home on smooth-muscle relaxant medications. Patient cleared from Surgery standpoint for discharge. /MODL Voice ID: [id number] Report ID: [id number]
--- NOTE | 2024-04-21 02:57 | DS ---
Date of Discharge: 04/20/2024 Disposition: Discharged to go home. Physical Examination: HEENT: Unremarkable. Lungs: Clear to auscultation. Cardiac: Heart sounds normal. Abdomen: Soft. Bowel sounds normal. No guarding, rigidity, distention. Minimal epigastric tendern ess, which is significantly better compared to last few days. No distention. Extremities: No leg edema. Discharge Medications And Instructions: 1.Continue all prior home medications. 2.Start dicyclomine 10 mg take 1 tablet by mouth 3 times a day. 3.Famotidine 40 mg take 1 tablet by mouth daily at bedtime. 4.Cipro 500 mg 2 times a day for 4 days. 5.Metronidazole 500 mg 3 times a day for 4 days. 6.Follow up at my office on , which is 04/24/2024. Laboratory Data: Upon admission, white count was 8, hemoglobin 13.7, platelets 156. Yesterday, whit e count 5.8, hemoglobin 12, platelets 132. For chemistry yesterday, sodium 139, potassium 3.4, chlor becca 108, bicarb 28, BUN 5, creatinine 0.69, glucose 196. Liver function tests unremarkable. Upon ad mission, sodium 136, potassium 3.7, chloride 104, bicarb 26, BUN 14, creatinine 0.73. Liver function tests unremarkable. Lipase 36. The patient's CAT scan of abdomen and pelvis done in emergency room upon admission showed evidence of dilated small bowel with fluid filled small bowel. No evidence of bowel obstruction. Her upper GI series was negative and small bowel series was also negative, which was done during this hospitalization. Hospital Course: This is a 48-year-old pleasant female patient who was admitted to the hospital with abdominal pain, low-grade fever, and nausea. Please see dictated H and P for more information. Aft er patient was evaluated at office, she was admitted to the hospital after her evaluation emergency room. Initially, she was kept n.p.o. IV fluid and IV antibiotic were started and the jayla ent's condition did not improve. She also required IV pain medications. Consultation was requested from Dr. Milton from General Surgery, who also evaluated the patient and obviously the patient did not have any acute surgical abdomen, and with conservative treatment, her condition has improved. Today , she looked a lot better, feels better, and she is tolerating diet well and our plan is to discharge her to go home with dicyclomine and first dose was given this morning thinking about possibility of irritable bowel syndrome. The patient has not had an upper endoscopy done in last 2 years or so as s he reported, so I have instructed her to follow up with her md senior research scientist on an outpatient basis for elective EGD to be done. The patient also received IV Pepcid along with IV antibiotic during is hospitalization. I have instructed her to try to stay on mostly liquid diet for next couple of da ys, but she may eat some soft diet, mostly food like rice, pasta, potato, bread, something which is e asy for her to digest and then advance her diet as she tolerates. The patient will be discharged to go home in stable condition with above-mentioned medications and instructions. Final Diagnoses: 1.Acute gastroenteritis. 2.Type 2 diabetes mellitus. 3.Hyperlipidemia. 4.Irritable bowel syndrome. Total time spent 40 minutes. FREDERICK/NILAY Voice ID: [id number] Report ID: [id number]
== END 2024-04-20 11:44 | disposition home or self-care (01) | DRG 392 ==
LOC: ER 18:10 → ERHOLD 21:20 → 2ND 04-17 12:36 → OBSVTOIN 04-17 16:04
PROVIDERS: ADMIT Internal Medicine; ATTEND Internal Medicine
DX: A08.4 Viral intestinal infection, unspecified (principal); Z68.42 Body mass index [BMI] 45.0-49.9, adult; E66.01 Morbid (severe) obesity due to excess calories; E03.9 Hypothyroidism, unspecified; I10 Essential (primary) hypertension; E78.5 Hyperlipidemia, unspecified; K58.9 Irritable bowel syndrome, unspecified; J45.30 Mild persistent asthma, uncomplicated; E11.9 Type 2 diabetes mellitus without complications; Z88.5 Allergy status to narcotic agent; Z88.0 Allergy status to penicillin; Z88.1 Allergy status to other antibiotic agents; Z90.49 Acquired absence of other specified parts of digestive tract; Z79.890 Hormone replacement therapy; Z79.899 Other long term (current) drug therapy; Z86.16 Personal history of COVID-19
CPT/HCPCS: 36415; 71045; 74177; 74240; 74250; 80048; 80053; 80061; 80076; 82947; 83690; 83735; 83880; 84484; 85025; 85610; 93005; 96374; 96375; 99285; G0378; J0744; J1650; J2405; J3010; J7030; Q9967

== ENCOUNTER 2024-11-18 10:57 | Emergency (ER) | payer OTHER ==
[2024-11-18] MEDS ORDERED: GABAPENTIN 300 MG CAP ONE (11:37)
[2024-11-18] MEDS ORDERED: carBAMazepine 200 MG TAB ONE (11:38)
--- NOTE | 2024-11-18 11:52 | RAD REPORT ---
EXAM: CT Head Brain Wo Cont HISTORY: left sided headache COMPARISON: 12/09/2014 TECHNIQUE: Multiple contiguous axial images were obtained for a CT of the brain without contrast. Sag ittal and coronal reformats were performed. One or more of the following dose reduction techniques were used: Automated exposure control, adjus tment of the mA and kV according to patient size, and iterative reconstruction. Unless otherwise specified, incidental findings do not require dedicated imaging follow-up. FINDINGS: No evidence of hydrocephalus, intracranial hemorrhage, or extra-axial fluid collection. The brain is normal in morphology. The calvarium is intact. The visualized paranasal sinuses and mastoid air cells are essentially clear . IMPRESSION: No evidence of acute intracranial abnormality.
--- NOTE | 2024-11-18 12:18 | ER ---
Nurse's Notes [facility] Name: Xenia Pittman Age: 49 yrs Sex: Female : 1975 Arrival Date: 11/18/2024 Time: 10:57 Bed 12 Private MD: Diagnosis: Trigeminal neuralgia Presentation: 11/18 11:21 Chief complaint: Patient states: burning sensitivity to L side of face that began ss . Sent by Dr. Montilla for further evaluation and treatment. Coronavirus screen: Client denies travel out of the [place] in the last 14 days. Ebola Screen: Patient denies exposure to infectious person. Patient denies travel to an Ebola-affected area in the 21 days before illness onset. Initial Sepsis Screen: Does the patient meet any 2 criteria? No. Patient's initial sepsis screen is negative. Does the patient have a suspected source of infection? No. Patient's initial sepsis screen is negative. Risk Assessment: Do you want to hurt yourself or someone else? Patient reports no desire to harm self or others. Onset of symptoms was November 13, 2024. 11:21 Method Of Arrival: Ambulatory ss 11:21 Acuity: GEOVANNY 3 ss Triage Assessment: 11:21 General: Appears in no apparent distress. comfortable, Behavior is calm, cooperative. ss Pain: Complains of pain in L side of face Pain currently is 8 out of 10 on a pain scale. Neuro: Level of Consciousness is awake, alert, obeys commands, Oriented to person, place, time, situation. Respiratory: Airway is patent Respiratory effort is even, unlabored, Respiratory pattern is regular, symmetrical. Derm: Skin is pink, warm \T\ dry. normal. Historical: - Allergies: 11:21 Codeine; ss 11:21 Levofloxacin; ss 11:21 PENICILLINS; ss 11:21 Sulfa (Sulfonamide Antibiotics); ss - PMHx: 11:21 Asthma; Diabetes - NIDDM; H Pylori; Hypertension; Hypothyroidism; Pancreatitis; ss - PSHx: 11:21 section; Cholecystectomy; ss - Immunization history:: Client reports receiving the 2nd dose of the Covid vaccine. - Infectious Disease History:: Denies. - Social history:: Smoking status: Patient denies any tobacco usage or history of. - Family history:: not pertinent. - Hospitalizations: : No recent hospitalization is reported. Screenin:36 Abuse screen: Denies threats or abuse. Denies injuries from another. Nutritional ss screening: No deficits noted. Tuberculosis screening: Never had TB. Assessment: 12:36 Reassessment: Patient appears in no apparent distress at this time. Patient and/or ss family updated on plan of care and expected duration. Pain level reassessed. Patient is alert, oriented x 3, equal unlabored respirations, skin warm/dry/pink. Neuro: Level of Consciousness is awake, alert, obeys commands. Respiratory: Respiratory effort is even, unlabored. Vital Signs: 11:21 BP 151 / 85; Pulse 82; Resp 16; Pulse Ox 99% ; ss [place] Coma Score: 12:15 Eye Response: spontaneous(4). Motor Response: obeys commands(6). Verbal Response: rn oriented(5). Total: 15. ED Course: 11:01 Patient arrived in ED. [email or web address] 11:14 Soto Delacruz MD is Attending Physician. rn 11:21 Arm band placed on right wrist. ss 11:22 Triage completed. ss 11:31 Rosemarie Santiago, RN is Primary Nurse. ss 11:36 CT Head Brain wo Cont In Process Unspecified. EDMS 12:36 Patient has correct armband on for positive identification. Bed in low position. ss 12:36 No provider procedures requiring assistance completed. Patient did not have IV access ss during this emergency room visit. Administered Medications: 11:41 Drug: carBAMazepine PO 100 mg PO once Route: PO; ss 12:37 Follow up: Response: No adverse reaction ss 11:41 Drug: Gabapentin PO 300 mg PO once Route: PO; ss 12:37 Follow up: Response: No adverse reaction ss Medication: 12:36 VIS not applicable for this client. ss Outcome: 12:17 Discharge ordered by . rn 12:36 Discharged to home ambulatory, ss 12:36 Condition: good 12:36 Discharge instructions given to patient, family, Instructed on discharge instructions, follow up and referral plans. medication usage, Demonstrated understanding of instructions, follow-up care, medications, Prescriptions given X 2, 12:37 Patient left the ED. ss Signatures: Dispatcher [employer] EDWA Soto Delacruz MD MD rn Blanchard, Shelby, RN RN Adwoa Portillo [email or web address]
--- NOTE | 2024-11-18 12:18 | EDPHYS ---
Physician Documentation [facility] Name: Xenia Pittman Age: 49 yrs Sex: Female : 1975 Arrival Date: 11/18/2024 Time: 10:57 Bed 12 Private MD: ED Physician Soto Delacruz HPI: 11/18 12:14 This 49 yrs old Female presents to ER via Ambulatory with complaints of Headache, Skin rn Problem. 12:14 The patient complains of pain to the Left side of head. The patient describes the rn headache as Burning. 12:15 Onset: The symptoms/episode began/occurred 5 day(s) ago. Headache History: Denies prior rn headaches. The patient has not experienced similar symptoms in the past. Patient reports left-sided headache, along the jaw and cheek and forehead, burning sensation, very sensitive to pressure. No trauma. Saw PCP today for headache and referred here for CT of the head. No focal neurological deficit. No neck stiffness.. Historical: - Allergies: 11:21 Codeine; ss 11:21 Levofloxacin; ss 11:21 PENICILLINS; ss 11:21 Sulfa (Sulfonamide Antibiotics); ss - PMHx: 11:21 Asthma; Diabetes - NIDDM; H Pylori; Hypertension; Hypothyroidism; Pancreatitis; ss - PSHx: 11:21 section; Cholecystectomy; ss - Immunization history:: Client reports receiving the 2nd dose of the Covid vaccine. - Infectious Disease History:: Denies. - Social history:: Smoking status: Patient denies any tobacco usage or history of. - Family history:: not pertinent. - Hospitalizations: : No recent hospitalization is reported. ROS: 12:15 Constitutional: Negative for fever, chills, and weight loss, Eyes: Negative for injury, rn pain, redness, and discharge, Cardiovascular: Negative for chest pain, palpitations, and edema, Respiratory: Negative for shortness of breath, cough, wheezing, and pleuritic chest pain, Abdomen/GI: Negative for abdominal pain, nausea, vomiting, diarrhea, and constipation, MS/Extremity: Negative for injury and deformity, Neuro: Positive for headache Exam: 12:15 Constitutional: This is a well developed, well nourished patient who is awake, alert, rn and in no acute distress. Head/Face: Normocephalic, atraumatic. Skin: No lesions. Left scalp and face sensitive to touch. No discoloration Neuro: Awake and alert, GCS 15, oriented to person, place, time, and situation. Cranial nerves II-XII grossly intact. Motor strength 5/5 in all extremities. Sensory grossly intact. Cerebellar exam normal. Normal gait. Vital Signs: 11:21 BP 151 / 85; Pulse 82; Resp 16; Pulse Ox 99% ; ss [place] Coma Score: 12:15 Eye Response: spontaneous(4). Motor Response: obeys commands(6). Verbal Response: rn oriented(5). Total: 15. MDM: 11:14 Medical Screening Exam initiated rn 12:15 Differential diagnosis: migraine, neoplasm, tension headache, trigeminal neuralgia, rn vasomotor headache. Data reviewed: vital signs, nurses notes, radiologic studies, CT scan. Counseling: I had a detailed discussion with the patient and/or guardian regarding the historical points, exam findings, and any diagnostic results supporting the discharge/admit diagnosis, radiology results, the need for outpatient follow up, to return to the emergency department if symptoms worsen or persist or if there are any questions or concerns that arise at home. Special discussion: I discussed with the patient/guardian in detail that at this point there is no indication for admission to the hospital. It is understood, however, that if the symptoms persist or worsen the patient needs to return immediately for re-evaluation. Based on the history and exam findings, there is no indication for further emergent testing or inpatient evaluation. I discussed with the patient/guardian the need to see the neurologist for further evaluation of the symptoms. ED course: CT head without contrast negative for acute findings. 11/18 11:22 Order name: CT Head Brain wo Cont; Complete Time: 12:12 rn Administered Medications: 11:41 Drug: carBAMazepine PO 100 mg PO once Route: PO; ss 12:37 Follow up: Response: No adverse reaction ss 11:41 Drug: Gabapentin PO 300 mg PO once Route: PO; ss 12:37 Follow up: Response: No adverse reaction ss Disposition Summary: 11/18/24 12:17 Discharge Ordered Notes: Location: Home rn Problem: new rn Symptoms: have improved rn Condition: Stable rn Diagnosis - Trigeminal neuralgia rn Followup: rn - With: Private Physician - When: As needed - Reason: Recheck today's complaints, Re-evaluation by your physician Discharge Instructions: - Discharge Summary Sheet rn - Trigeminal Neuralgia rn Forms: - Medication Reconciliation Form rn - Antibiotic car varnisher - Prescription Opioid Use rn - Patient Portal Instructions rn - Leadership Thank You Letter rn Prescriptions: - gabapentin 100 mg Oral capsule - take 1 capsule ORAL route every 12 hours As needed; 14 capsule; Refills: 0, rn Product Selection Permitted - Carbamazepine 200 mg Oral Tablet - take 1 tablet ORAL route every 12 hours; 20 tablet; Refills: 0, Product rn Selection Permitted Signatures: Dispatcher [employer] Soto Mccormack MD MD rn Blanchard, Shelby, RN RN ss Corrections: (The following items were deleted from the chart) 11:23 11:23 Head Brain Wo [id number].RAD.BRZ ordered. EDMD EDMD
[2024-11-18 12:43] VITALS: BP 151/85; O2SAT 99
== END 2024-11-18 12:37 | disposition home or self-care (01) ==
LOC: ER 10:57
DX: G50.0 Trigeminal neuralgia (principal)
CPT/HCPCS: 70450; 99283